=== PATIENT | male | born 1955 | race Caucasian/White ===

== ENCOUNTER 2017-02-20 10:10 | Inpatient (IN) | payer OTHER ==
[2017-02-20] MEDS ORDERED: PROMETHAZINE INJ 12.5 MG in SODIUM CHLORIDE 0.9% 50 ML IV STA (11:49)
[2017-02-20] MEDS ORDERED: IOPAMIDOL-300 100 ML VIAL IVP ONE (11:51)
[2017-02-20] MEDS ORDERED: PROMETHAZINE 25 MG/1 ML VIAL ONE (11:53)
[2017-02-20] MEDS ORDERED: SODIUM CHLORIDE 0.9% 1,000 ML IV ONE ×2 (12:40→14:20)
[2017-02-20] MEDS ORDERED: ONDANSETRON 4 MG/2 ML VIAL IVP STA (12:46)
[2017-02-20] MEDS ORDERED: HYOSCYAMINE SL 0.125 MG TABLET SL STA (12:47)
[2017-02-20] MEDS ORDERED: ONDANSETRON 4 MG/2 ML VIAL ONE (12:51)
[2017-02-20] MEDS ORDERED: PROCHLORPERAZINE 10 MG/2 ML VIAL IVP PRN (14:25)
[2017-02-20] MEDS: SODIUM CHLORIDE 0.9% 1,000 ML IV SCH ×2 (15:41→23:33)
[2017-02-20] MEDS: HYDROmorphone 1 MG/ML SYRINGE IVP PRN ×4 (15:41→23:43)
[2017-02-20] MEDS: PROMETHAZINE INJ 25 MG in SODIUM CHLORIDE 0.9% 50 ML IV PRN ×2 (15:41→21:09)
[2017-02-20] MEDS: SODIUM CHLORIDE FLUSH 0.9% 10 ML SYRINGE IVP SCH (15:50)
[2017-02-20] MEDS: INSULIN ASPART 300 UNIT/3 ML PEN SUBQ SCH ×2 (17:00→20:35)
[2017-02-20] MEDS: ONDANSETRON ODT 4 MG TABLET TL PRN (20:29)
[2017-02-21] MEDS: SODIUM CHLORIDE FLUSH 0.9% 10 ML SYRINGE IVP PRN ×4 (03:48→15:51)
[2017-02-21] MEDS: HYDROmorphone 1 MG/ML SYRINGE IVP PRN ×5 (03:48→21:34)
[2017-02-21] MEDS: SODIUM CHLORIDE FLUSH 0.9% 10 ML SYRINGE IVP SCH ×3 (05:28→17:30)
[2017-02-21] MEDS: SODIUM CHLORIDE 0.9% 1,000 ML IV SCH ×3 (05:39→19:39)
[2017-02-21] MEDS: INSULIN ASPART 300 UNIT/3 ML PEN SUBQ SCH ×4 (08:10→21:03)
[2017-02-21] MEDS: ONDANSETRON ODT 4 MG TABLET TL PRN (08:20)
[2017-02-21] MEDS: LISINOPRIL 20 MG TABLET PO SCH (08:20)
[2017-02-21] MEDS: FAMOTIDINE 20 MG TABLET PO SCH (08:20)
[2017-02-21] MEDS: METOPROLOL TARTRATE 25 MG TABLET PO SCH (08:21)
[2017-02-21] MEDS: POLYETHYLENE GLYCOL 3350 17 GM PACKET PO SCH (08:22)
[2017-02-21] MEDS: metroNIDAZOLE 250 MG TABLET PO SCH ×2 (12:45→17:31)
[2017-02-21] MEDS: PROMETHAZINE INJ 25 MG in SODIUM CHLORIDE 0.9% 50 ML IV PRN (14:04)
[2017-02-21] MEDS: SODIUM/POTASSIUM/MAG SULFATES 354 ML PREP KIT PO SCH (19:37)
[2017-02-21] MEDS: ACETAMINOPHEN 325 MG TABLET PO PRN (20:29)
[2017-02-22] MEDS: metroNIDAZOLE 250 MG TABLET PO SCH ×5 (00:05→23:40)
[2017-02-22] MEDS: HYDROmorphone 1 MG/ML SYRINGE IVP PRN ×8 (00:15→23:40)
[2017-02-22] MEDS: SODIUM CHLORIDE 0.9% 1,000 ML IV SCH ×4 (01:42→20:57)
[2017-02-22] MEDS: SODIUM CHLORIDE FLUSH 0.9% 10 ML SYRINGE IVP SCH ×4 (05:25→20:58)
[2017-02-22] MEDS: INSULIN REGULAR HUMAN 100 UNIT/1 ML 10 ML MDV SUBQ SCH ×2 (06:03→11:46)
[2017-02-22] MEDS: SODIUM/POTASSIUM/MAG SULFATES 354 ML PREP KIT PO SCH (07:50)
[2017-02-22] MEDS: ACETAMINOPHEN 325 MG TABLET PO PRN (07:57)
[2017-02-22] MEDS: METOPROLOL TARTRATE 25 MG TABLET PO SCH (07:58)
[2017-02-22] MEDS: LISINOPRIL 20 MG TABLET PO SCH (07:58)
[2017-02-22] MEDS: FAMOTIDINE 20 MG TABLET PO SCH (07:58)
[2017-02-22] MEDS: POLYETHYLENE GLYCOL 3350 17 GM PACKET PO SCH (10:39)
[2017-02-22] MEDS: TAMSULOSIN 0.4 MG CAPSULE PO SCH (11:33)
[2017-02-22] MEDS ORDERED: fentaNYL 250 MCG/5 ML VIAL IVP ONE (14:15)
[2017-02-22] MEDS ORDERED: SODIUM CHLORIDE 0.9% 1,000 ML IV ONE (14:15)
[2017-02-22] MEDS ORDERED: MIDAZOLAM 2 MG/2 ML VIAL IVP ONE (14:15)
[2017-02-22] MEDS: INSULIN ASPART 300 UNIT/3 ML PEN SUBQ SCH ×2 (17:22→20:49)
[2017-02-22] MEDS: SODIUM CHLORIDE FLUSH 0.9% 10 ML SYRINGE IVP PRN (23:41)
[2017-02-22] MEDS: ONDANSETRON ODT 4 MG TABLET TL PRN (23:47)
[2017-02-23] MEDS: SODIUM CHLORIDE 0.9% 1,000 ML IV SCH ×2 (04:07→12:39)
[2017-02-23] MEDS: HYDROmorphone 1 MG/ML SYRINGE IVP PRN ×2 (04:45→06:28)
[2017-02-23] MEDS: metroNIDAZOLE 250 MG TABLET PO SCH ×2 (06:22→13:03)
[2017-02-23] MEDS: ACETAMINOPHEN 325 MG TABLET PO PRN (07:27)
[2017-02-23] MEDS: METOPROLOL TARTRATE 25 MG TABLET PO SCH (08:17)
[2017-02-23] MEDS: TAMSULOSIN 0.4 MG CAPSULE PO SCH (08:17)
[2017-02-23] MEDS: FAMOTIDINE 20 MG TABLET PO SCH (08:17)
[2017-02-23] MEDS: LISINOPRIL 20 MG TABLET PO SCH (08:17)
[2017-02-23] MEDS: POLYETHYLENE GLYCOL 3350 17 GM PACKET PO SCH (08:19)
[2017-02-23] MEDS: INSULIN ASPART 300 UNIT/3 ML PEN SUBQ SCH ×2 (09:02→12:39)
[2017-02-23] MEDS: SODIUM CHLORIDE FLUSH 0.9% 10 ML SYRINGE IVP SCH (13:48)
== END 2017-02-23 15:48 | disposition home or self-care (01) | DRG 392 ==
DX: K52.9 Noninfective gastroenteritis and colitis, unspecified (principal); K55.9 Vascular disorder of intestine, unspecified; R82.99 Other abnormal findings in urine; E11.65 Type 2 diabetes mellitus with hyperglycemia; I25.10 Atherosclerotic heart disease of native coronary artery without angina pectoris; I10 Essential (primary) hypertension; E78.5 Hyperlipidemia, unspecified; E03.9 Hypothyroidism, unspecified; Z79.82 Long term (current) use of aspirin; Z79.899 Other long term (current) drug therapy; Z79.84 Long term (current) use of oral hypoglycemic drugs; R33.0 Drug induced retention of urine; G47.33 Obstructive sleep apnea (adult) (pediatric)
CPT/HCPCS: 45380; G0378

== ENCOUNTER 2017-04-30 07:34 | Outpatient (CLI) | payer OTHER ==
[2017-04-30] MEDS ORDERED: IOPAMIDOL-300 100 ML VIAL IVP ONE (08:05)
--- NOTE | 2017-04-30 11:13 | CT Report ---
CT ANGIOGRAM ABDOMEN AND PELVIS: 04/30/2017 CLINICAL INDICATION: History of ischemic colitis. TECHNIQUE: Axial CT angiographic images of the abdomen and pelvis were obtained with 100 mL Isovue-3 00 intravenously. Sagittal and coronal 3D reconstructions were performed. In accordance with CT protocol optimization, one or more of the following dose reduction techniques w ere utilized for this exam: automated exposure control, adjustment of mA and/or KV based on patient size, or use of iterative reconstructive technique. COMPARISON: Previous CT of the abdomen and pelvis of 02/20/2017. FINDINGS: Limited evaluation of the lung bases demonstrates emphysema. The previously noted 3-mm le ft lower lobe nodule is no longer appreciated. Abdomen: The abdominal aorta is normal in caliber throughout. No significant atherosclerosis or cole nosis is identified. The celiac is widely patent. The superior mesenteric artery is widely patent. Widely patent renal arteries are noted bilaterally. The inferior mesenteric artery is widely patent . There is no evidence of a focal hemodynamically significant stenosis in either the superior mesent [place] or inferior mesenteric arteries. The common, external, and internal iliac arteries are unremark able. There is mild atherosclerotic disease in the common femoral arteries. Allowing for phase of contrast enhancement, the liver, spleen, pancreas, kidneys, and adrenal glands appear unremarkable. No bowel dilatation, free gas, or free fluid is present. No abdominal adenopat hy is seen. IMPRESSION: NORMAL CT ANGIOGRAM OF THE ABDOMEN AND PELVIS. NO EVIDENCE OF A HEMODYNAMICALLY SIGNIFI CANT MESENTERIC STENOSIS. JOB #: [id number] EXT JOB #:[id number]
== END 2017-04-30 07:35 | disposition home or self-care (01) ==
LOC: DI 07:34
PROVIDERS: ATTEND Surgery
DX: K55.9 Vascular disorder of intestine, unspecified (principal)
CPT/HCPCS: 74174; Q9967

== ENCOUNTER 2019-05-13 07:20 | Inpatient (IN) | payer OTHER ==
[2019-05-13] MEDS ORDERED: ONDANSETRON 4 MG/2 ML VIAL IVP STA ×2 (07:51→11:54)
[2019-05-13] MEDS ORDERED: HYDROmorphone 1 MG/ML CARPUJECT IVP STA ×2 (07:51→11:54)
[2019-05-13] MEDS ORDERED: SODIUM CHLORIDE 0.9% 1,000 ML IV ONE ×2 (07:51→11:54)
--- NOTE | 2019-05-13 07:54 | ED Physician Documentation ---
PD HPI ABD PAIN - Stated complaint Stated Complaint: MALE /BLEEDING - Chief complaint Chief Complaint: Abd Pain - History obtained from History obtained from: Patient - History of Present Illness Timing - onset: Last night Timing - duration: Days (1) Timing - details: Gradual onset, Still present Quality: Sharp, Pain Location: LLQ Improved by: Laying still Worsened by: Position, Palpation Associated symptoms: Nausea, Hematochezia Similar symptoms before: Diagnosis (colitis NOS 2 years ago) Recently seen: Not recently seen - Additional information Additional information: Similar to what happened 2 years ago with colitis leading to a 5 day hospitalization and no symptoms in the intervening time. The patient has developed a sequence of hard stool followed by normal stool followed by soft stool followed by explosive watery diarrhea. Last night he had several episodes of this followed by bloody diarrhea early this morning. He has had prior episode similar to this. Biopsy diagnosed ischemic colitis. Review of Systems Constitutional: reports: Chills. denies: Fever Eyes: denies: Decreased vision Ears: denies: Ear pain Nose: denies: Congestion Throat: denies: Sore throat Cardiac: denies: Chest pain / pressure, Palpitations Respiratory: denies: Dyspnea, Cough GI: reports: Abdominal Pain, Nausea, Bloody / black stool : denies: Dysuria, Frequency PD PAST MEDICAL HISTORY - Past Medical History Cardiovascular: Hypertension, High cholesterol Endocrine/Autoimmune: Type 2 diabetes - Past Surgical History Past Surgical History: Yes General: Cholecystectomy - Present Medications Home Medications: Ambulatory Orders Medication Instructions Recorded Confirmed Aspirin 325 mg PO DAILY 02/20/17 02/20/17 Levothyroxine Sodium [Synthroid] 100 mcg PO DAILY 02/20/17 02/20/17 Lisinopril 40 mg PO DAILY 02/20/17 02/20/17 Metformin HCl 1,000 mg PO BID 02/20/17 02/20/17 Metoprolol Tartrate 25 mg PO DAILY 02/20/17 02/20/17 Tamsulosin [Flomax] 0.8 mg PO DAILY #14 capsule 02/23/17 metroNIDAZOLE [Flagyl] 500 mg PO Q6HR #20 tablet 02/23/17 - Allergies Allergies/Adverse Reactions: Allergies Allergy/AdvReac Type Severity Reaction Status Date / Time No Known Drug Allergies Allergy Verified 05/13/19 07:29 - Social History Does the pt smoke?: No Smoking Status: Never smoker Does the pt drink ETOH?: No Does the pt have substance abuse?: No PD ED PE NORMAL - Vitals Vital signs reviewed: Yes (tachy and hypertensive ) - General General: Alert and oriented X 3, No acute distress, Well developed/nourished - HEENT HEENT: Atraumatic, PERRL, EOMI - Cardiac Cardiac: No murmur, Other (tachy) - Respiratory Respiratory: No respiratory distress - Abdomen Abdomen: Soft, Other (LLQ pain to palpation) - Back Back: No CVA TTP, No spinal TTP - Derm Derm: Normal color, Warm and dry, No rash - Extremities Extremities: No deformity, No edema - Neuro Neuro: Alert and oriented X 3, 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, No motor deficit, No sensory deficit, Normal speech Eye Opening: Spontaneous Motor: Obeys Commands Verbal: Oriented GCS Score: 15 - Psych Psych: Normal mood, Normal affect Results - Vitals Vitals: Vital Signs - 24 hr 05/13/19 05/13/19 05/13/19 07:27 08:55 10:24 Temperature 36.7 C Heart Rate 101 H 96 79 Respiratory 17 20 18 Rate Blood Pressure 182/88 H 174/90 H 159/79 H O2 Saturation 98 100 99 Oxygen O2 Source Room air - Labs Labs: Laboratory Tests 05/13/19 05/13/19 05/13/19 07:40 07:40 07:40 WBC 12.3 H RBC 5.00 Hgb 15.3 Hct 42.9 MCV 85.8 MCH 30.6 MCHC 35.7 RDW 12.9 Plt Count 227 MPV 9.3 Neut # (Auto) 9.8 H Lymph # (Auto) 1.4 L [place] # (Auto) 0.9 Eos # (Auto) 0.0 Baso # (Auto) 0.0 Absolute Nucleated RBC 0.00 Nucleated RBC % 0.0 Sodium 135 Potassium 4.0 Chloride 98 L Carbon Dioxide 23 Anion Gap 14.0 H BUN 26 H Creatinine 1.0 Estimated GFR (MDRD) 76 L Glucose 264 H Calcium 10.4 H Total Bilirubin 1.0 AST 53 H ALT 83 H Alkaline Phosphatase 107 Troponin I < 0.04 Total Protein 8.3 H Albumin 5.0 Globulin 3.3 Albumin/Globulin Ratio 1.5 Lipase 20 L Urine Color Urine Clarity Urine pH Ur Specific [place] Urine Protein Urine Glucose (UA) Urine Ketones Urine Occult Blood Urine Nitrite Urine Bilirubin Urine Urobilinogen Ur Leukocyte Esterase Ur Microscopic Review Urine Culture Comments 05/13/19 07:40 WBC RBC Hgb Hct MCV MCH MCHC RDW Plt Count MPV Neut # (Auto) Lymph # (Auto) [place] # (Auto) Eos # (Auto) Baso # (Auto) Absolute Nucleated RBC Nucleated RBC % Sodium Potassium Chloride Carbon Dioxide Anion Gap BUN Creatinine Estimated GFR (MDRD) Glucose Calcium Total Bilirubin AST ALT Alkaline Phosphatase Troponin I Total Protein Albumin Globulin Albumin/Globulin Ratio Lipase Urine Color YELLOW Urine Clarity CLEAR Urine pH 6.0 Ur Specific [place] <=1.005 Urine Protein NEGATIVE Urine Glucose (UA) 250 H Urine Ketones NEGATIVE Urine Occult Blood NEGATIVE Urine Nitrite NEGATIVE Urine Bilirubin NEGATIVE Urine Urobilinogen 0.2 (NORMAL) Ur Leukocyte Esterase NEGATIVE Ur Microscopic Review NOT INDICATED Urine Culture Comments NOT INDICATED - Rads (name of study) ct abd/pel w Radiology: Prelim report reviewed (Impression: 1. Nearly diffuse colonic wall thickening compatible with colitis. Cannot exclude early pancolitis. Soft tissue stranding is present adjacent to descending and proximal sigmoid colon. No pneumatosis or coli or portal venous gas. Fatty liver. Prior cholecystectomy.), EMP read indepedently, See rad report PD MEDICAL DECISION MAKING - ED course Complexity details: reviewed old records, reviewed results, re-evaluated patient, considered differential, d/w patient ED course: 63-year-old male with abdominal pain and a history of ischemic colitis has developed symptoms again and he will need admission for supportive care for bowel rest pain management and fluids. Departure - Departure Disposition: [facility] DC/Xfer Clinical Impression: Acute ischemic colitis Condition: Stable
[2019-05-13 07:57] LABS: BASOPHILS % (AUTO) 0.3 %; EOSINOPHILS % (AUTO) 0.1 %; HGB - HEMOGLOBIN 15.3 g/dL (14.0-18.0); LYMPHOCYTES # (AUTO) 1.4 10^3/uL (1.5-3.5); LYMPHOCYTES % (AUTO) 11.7 %; MEAN CORPUSCULAR HEMOGLOBIN 30.6 pg (27.0-31.0); MEAN CORPUSCULAR HGB CONC 35.7 g/dL (32.0-36.0); MEAN CORPUSCULAR VOLUME 85.8 fL (80.0-94.0); MEAN PLATELET VOLUME 9.3 fL (7.4-11.4); MONOCYTES # (AUTO) 0.9 10^3/uL (0.0-1.0); MONOCYTES % (AUTO) 7.4 %; NEUTROPHILS # (AUTO) 9.8 10^3/uL (1.5-6.6); NEUTROPHILS % (AUTO) 79.9 %; PLT - PLATELET COUNT 227 10^3/uL (130-450); RED CELL DISTRIBUTION WIDTH 12.9 % (12.0-15.0); WHITE BLOOD COUNT 12.3 x10^3/uL (4.8-10.8)
[2019-05-13 08:09] LABS: ALBUMIN/GLOBULIN RATIO 1.5 (1.0-2.2); CALCIUM 10.4 mg/dL (8.5-10.3); TOTAL PROTEIN 8.3 g/dL (6.7-8.2)
[2019-05-13] MEDS ORDERED: IOVERSOL 320 100 ML VIAL IVP ONE ×3 (08:24→18:23)
--- NOTE | 2019-05-13 09:12 | CT Report ---
Reason: LLQ pain bleeding Procedure Date: 05/13/2019 Accession Number: [id number] / [id number] Procedure: CT - Abdomen/Pelvis W CPT Code: FULL RESULT: EXAM: CT ABDOMEN AND PELVIS EXAM DATE: 05/13/2019 08:45 AM. CLINICAL HISTORY: LLQ pain bleeding. COMPARISONS: ABDOMEN ANGIO 04/30/2017 7:55 AM. TECHNIQUE: Routine helical CT imaging was performed through the abdomen and pelvis. IV contrast: 80 cc Optiray 320. Enteric contrast: No. Reconstructions: Coronal and sagittal. In accordance with CT protocol optimization, one or more of the following dose reduction techniques were utilized for this exam: automated exposure control, adjustment of mA and/or KV based on patient size, or use of iterative reconstructive technique. FINDINGS: Lung Bases: Unremarkable. Liver: Diffuse decreased liver attenuation consistent with fatty infiltration. No focal mass demonstrated. Gallbladder/Bile Ducts: Gallbladder surgically absent. Spleen: Normal. Pancreas: Normal. Adrenal Glands: Normal. Kidneys: Normal. No masses or hydronephrosis. Peritoneal Cavity/Bowel: Nearly diffuse colonic wall thickening relatively sparing cecum and possibly rectum. Soft tissue stranding adjacent to descending colon and proximal sigmoid colon. Fecalized contents of terminal ileum compatible with stasis. No dilated small bowel to suggest obstruction. Appendix not seen. No portal venous gas. No pneumatosis coli. Pelvic Organs: Normal. The bladder and visualized pelvic organs are within normal limits. Vasculature: No aneurysms or other significant abnormality. Visualized mesenteric arteries and veins are patent. Bones: Lumbar spine degenerative changes. Lower thoracic spine DISH. Other: None. IMPRESSION: 1. Nearly diffuse colonic wall thickening compatible with colitis. Cannot exclude early pancolitis. Soft tissue stranding is present adjacent to descending and proximal sigmoid colon. No pneumatosis coli or portal venous gas. 2. Fatty liver. 3. Prior cholecystectomy. RADIA
[2019-05-13 10:33] LABS: BILIRUBIN,URINE NEGATIVE (NEGATIVE); GLUCOSE, URINE (UA) 250 mg/dL (NEGATIVE); KETONES,URINE (UA) NEGATIVE (NEGATIVE); LEUKOCYTE ESTERASE, URINE NEGATIVE (NEGATIVE); NITRITE,URINE NEGATIVE (NEGATIVE); OCCULT BLOOD,URINE NEGATIVE (NEGATIVE); PROTEIN,URINE NEGATIVE (NEGATIVE); UROBILINOGEN,URINE 0.2 (NORMAL) E.U./dL (NORMAL)
[2019-05-13 10:34] LABS: CLARITY,URINE CLEAR (CLEAR)
[2019-05-13] MEDS ORDERED: ONDANSETRON ODT 4 MG TABLET TL PRN (12:10)
[2019-05-13] MEDS ORDERED: oxyCODONE 5 MG TABLET PO PRN (12:10)
[2019-05-13] MEDS: SODIUM CHLORIDE 0.9% 1,000 ML IV SCH (14:22)
[2019-05-13] MEDS: PIPERACILLIN/TAZOBACTAM 4.5 GM in SODIUM CHLORIDE 0.9% MINIBAG 100 ML IV SCH ×2 (14:22→19:27)
--- NOTE | 2019-05-13 15:15 | HISTORY & PHYSICAL EXAMINATION ---
Chief Complaint - Chief Complaint Chief Complaint: Abdominal Pain, N/V/D and hematochezia Abdominal Pain HPI - Admitted From Admitted from: ED - History Obtained From Records Reviewed: Old records reviewed History obtained from: Patient Exam limitations: No limitations - History of Present Illness Severity at the worst: Severe Pain Quality: Cramping, Other ("Knawing") Context-Pain started w/: Eating, Movement Timing: Abrupt onset, Constant Duration: Days: (1) PMH/PSH - Past Medical History Cardiovascular: positive: Hypertension, High cholesterol Endocrine/Autoimmune: positive: Type 2 diabetes MRSA Hx?: No - Past Surgical History General: positive: Cholecystectomy Social & Family Hx - Social History Does the pt smoke?: No Smoking Status: Never smoker Does the pt drink ETOH?: No Does the pt have substance abuse?: No Meds/Allgy - Home Medications Home Medications: Ambulatory Orders Medication Instructions Recorded Confirmed Aspirin 325 mg PO DAILY 02/20/17 05/13/19 Levothyroxine Sodium [Synthroid] 100 mcg PO DAILY 02/20/17 05/13/19 Lisinopril 40 mg PO DAILY 02/20/17 05/13/19 Metformin HCl 1,000 mg PO BID 02/20/17 05/13/19 Atorvastatin Calcium 40 mg PO QPM 05/13/19 05/13/19 Dulaglutide [Trulicity] 0.75 mg SQ WE 05/13/19 05/13/19 Folic Acid 1 mg PO DAILY 05/13/19 05/13/19 Gabapentin [Neurontin] 300 mg PO TID 05/13/19 05/13/19 Insulin Aspart [NovoLOG] 25 unit SUBQ BID 05/13/19 Insulin Glargine [Lantus Solostar] 25 unit SUBQ QPM 05/13/19 05/13/19 Lisinopril [Prinivil] 20 mg PO QPM 05/13/19 05/13/19 hydroCHLOROthiazide 25 mg PO DAILY 05/13/19 05/13/19 [Hydrochlorothiazide] - Allergies Allergies/Adverse Reactions: Allergies Allergy/AdvReac Type Severity Reaction Status Date / Time No Known Drug Allergies Allergy Verified 05/13/19 07:29 Exam - Vital Signs Vital Signs: Vital Signs x48h Temp Pulse Pulse Resp BP BP Pulse Ox 05/13/19 13:46 36.7 C 102 H 16 133/79 H 96 06/29/19 12:47 36.0 C L 79 18 134/74 H 97 05/13/19 12:32 106 H 126/80 93 05/13/19 10:24 79 18 159/79 H 99 05/13/19 08:55 96 20 174/90 H 100 05/13/19 07:27 36.7 C 101 H 17 182/88 H 98 Results - Lab Results Fish Bones: 05/13/19 07:40 05/13/19 07:40 Other Lab Results: Lab Results x24hrs 05/13/19 05/13/19 05/13/19 Range/Units 07:40 07:40 07:40 WBC (4.8-10.8) x10^3/uL RBC (4.70-6.10) 10^6/uL Hgb (14.0-18.0) g/dL Hct (42.0-52.0) % MCV (80.0-94.0) fL MCH (27.0-31.0) pg MCHC (32.0-36.0) g/dL RDW (12.0-15.0) % Plt Count (130-450) 10^3/uL MPV (7.4-11.4) fL Neut # (Auto) (1.5-6.6) 10^3/uL Lymph # (Auto) (1.5-3.5) 10^3/uL [place] # (Auto) (0.0-1.0) 10^3/uL Eos # (Auto) (0.0-0.7) 10^3/uL Baso # (Auto) (0.0-0.1) 10^3/uL Absolute Nucleated RBC x10^3/uL Nucleated RBC % /100WBC Sodium 135 (135-145) mmol/L Potassium 4.0 (3.5-5.0) mmol/L Chloride 98 L (101-111) mmol/L Carbon Dioxide 23 (21-32) mmol/L Anion Gap 14.0 H (6-13) BUN 26 H (6-20) mg/dL Creatinine 1.0 (0.6-1.2) mg/dL Estimated GFR (MDRD) 76 L (>89) Glucose 264 H (70-100) mg/dL Calcium 10.4 H (8.5-10.3) mg/dL Total Bilirubin 1.0 (0.2-1.0) mg/dL AST 53 H (10-42) IU/L ALT 83 H (10-60) IU/L Alkaline Phosphatase 107 (42-121) IU/L Troponin I < 0.04 (<0.49) ng/mL Total Protein 8.3 H (6.7-8.2) g/dL Albumin 5.0 (3.2-5.5) g/dL Globulin 3.3 (2.1-4.2) g/dL Albumin/Globulin Ratio 1.5 (1.0-2.2) Lipase 20 L (22-51) U/L Urine Color YELLOW Urine Clarity CLEAR (CLEAR) Urine pH 6.0 (5.0-7.5) PH Ur Specific [place] <=1.005 (1.002-1.030) Urine Protein NEGATIVE (NEGATIVE) mg/dL Urine Glucose (UA) 250 H (NEGATIVE) mg/dL Urine Ketones NEGATIVE (NEGATIVE) mg/dL Urine Occult Blood NEGATIVE (NEGATIVE) Urine Nitrite NEGATIVE (NEGATIVE) Urine Bilirubin NEGATIVE (NEGATIVE) Urine Urobilinogen 0.2 (NORMAL) (NORMAL) E.U./dL Ur Leukocyte Esterase NEGATIVE (NEGATIVE) Ur Microscopic Review NOT INDICATED Urine Culture Comments NOT INDICATED 05/13/19 Range/Units 07:40 WBC 12.3 H (4.8-10.8) x10^3/uL RBC 5.00 (4.70-6.10) 10^6/uL Hgb 15.3 (14.0-18.0) g/dL Hct 42.9 (42.0-52.0) % MCV 85.8 (80.0-94.0) fL MCH 30.6 (27.0-31.0) pg MCHC 35.7 (32.0-36.0) g/dL RDW 12.9 (12.0-15.0) % Plt Count 227 (130-450) 10^3/uL MPV 9.3 (7.4-11.4) fL Neut # (Auto) 9.8 H (1.5-6.6) 10^3/uL Lymph # (Auto) 1.4 L (1.5-3.5) 10^3/uL [place] # (Auto) 0.9 (0.0-1.0) 10^3/uL Eos # (Auto) 0.0 (0.0-0.7) 10^3/uL Baso # (Auto) 0.0 (0.0-0.1) 10^3/uL Absolute Nucleated RBC 0.00 x10^3/uL Nucleated RBC % 0.0 /100WBC Sodium (135-145) mmol/L Potassium (3.5-5.0) mmol/L Chloride (101-111) mmol/L Carbon Dioxide (21-32) mmol/L Anion Gap (6-13) BUN (6-20) mg/dL Creatinine (0.6-1.2) mg/dL Estimated GFR (MDRD) (>89) Glucose (70-100) mg/dL Calcium (8.5-10.3) mg/dL Total Bilirubin (0.2-1.0) mg/dL AST (10-42) IU/L ALT (10-60) IU/L Alkaline Phosphatase (42-121) IU/L Troponin I (<0.49) ng/mL Total Protein (6.7-8.2) g/dL Albumin (3.2-5.5) g/dL Globulin (2.1-4.2) g/dL Albumin/Globulin Ratio (1.0-2.2) Lipase (22-51) U/L Urine Color Urine Clarity (CLEAR) Urine pH (5.0-7.5) PH Ur Specific [place] (1.002-1.030) Urine Protein (NEGATIVE) mg/dL Urine Glucose (UA) (NEGATIVE) mg/dL Urine Ketones (NEGATIVE) mg/dL Urine Occult Blood (NEGATIVE) Urine Nitrite (NEGATIVE) Urine Bilirubin (NEGATIVE) Urine Urobilinogen (NORMAL) E.U./dL Ur Leukocyte Esterase (NEGATIVE) Ur Microscopic Review Urine Culture Comments
--- NOTE | 2019-05-13 15:28 | HISTORY & PHYSICAL EXAMINATION ---
Chief Complaint - Chief Complaint Chief Complaint: Abdominal Pain, N/V/D and hematochezia <Isacc Dumont - Last Filed: 05/13/19 15:30> History of Present Illness - Admitted From Admitted From:: ED - History Obtained From Records Reviewed: Yes History obtained from: Patient and previous medical record Exam Limitations: None <Isacc Dumont - Last Filed: 05/13/19 15:30> <Nikia Molina - Last Filed: 05/13/19 17:22> - History of Present Illness HPI Comment/Other: Mr. Mancini is a 63yo M with PMH of T2DM, HLD, HTN, athlerosclerosis, and hypothyroidism who presented to the ED early this am with severe abdominal pain, nausea, vomiting and hematochezia that started last night around 2200. It started with about 5 hours and vomiting and diarrhea that turned into having f rank bloody stools (about 5-6 episodes). He reports an 8 month history of ongoing abdominal pain, but that last night it was 7/10 and significantly worse than baseline. Pain is a constant "knawing" and cramping in the bilateral lower abdomen and worse on the left side. Worsened with any movement and not found to be relieved by anything, though he hasn't tried anything until receiving medication in the ED. CT Abd/Pelvis shows diffuse liver attenuation consistent with fatty infiltration and diffuse colonic wall thickening compatible with colitis, cannot exclude pancolitits. CBC shows a mildly elevated WBC at 12.3. Elevated LFTs with AST 53 and ALT 83. Elevated glucose at 264, with glucose positive in urine as well. He had a previous episode in which the patient presented in a similar manner and he reports his symptoms being nearly identical. He was [facility] 02/23[facility] (See discharge summary by Dr.Wilson CARNEY) with diagnosis of colitis of unknown etiology and acute gastroenteritis. Colonoscopy with biopsies revealed ischemic colitis, negative for dysplagia or carcinoma. (Isacc Dumont) Patient seen with student and history obtained. No additions. He Had a previous admission for ischemic colitis in 2017. He does have documented risk factors for arterial sclerosis and has not been compliant with his medications or li festyle. He now presents with an 8-month history of intermittent abdominal pain made worse by eating. Cycles about once a week. This time he had abrupt onset nausea, vomiting, diarrhea. Lasted 5 hours and then transition to bloody diarrhea. He has been seen in the emergency room and he is afebrile, tachycardic to 101, hypertensive at 182/88 with respirations 17 and 98% on room air. He has left lower quadrant pain to palpation but normal bowel sounds. (Nikia Molina) History - Past Medical History Cardiovascular: reports: Hypertension, High cholesterol Respiratory: reports: Shortness of breath (intermittent episodes of SOB every 1- 2 weeks for past few months) Neuro: reports: None Endocrine/Autoimmune: reports: Type 2 diabetes, HyPOthyroidism GI: reports: Chronic diarrhea, Other (Ischemic colitis in 2017) : reports: None HEENT: reports: None Psych: reports: None Musculoskeletal: reports: None Derm: reports: Other (pink scaley spots to R forearm and R cheek) MRSA Hx?: No Other Past Medical History: Ankle Surgery in 2004. Gallbladder removal in 2007 - Past Surgical History General: reports: Cholecystectomy <Isacc Dumont - Last Filed: 05/13/19 15:30> - Past Surgical History Other past surgical history: Past medical history obtained and no additions to past medical or surgical history. - Family & Social History Family History Comment/Other: Mom at age 69 dementia. Dad at age 78 of congestive heart failure. No siblings. 5 children. Oldest has type 1 diabetes mellitus and rheumatoid arthritis Living arrangement: At home Living Situation: With spouse/s.o. 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 Currently works for the [employer] in [place] during the week and lives in [place] on the weekends. Never smoked. Drinks maybe 2 beers a month. to his for 38 years and they have 5 children together. No history of recreational substance abuse. - Substance History Use: Uses substance without health or social issues: NONE Abuse: Recurrent use of substance despite neg consequences: NONE Dependence: Experiences withdrawal or developed tolerances: NONE - POLST Patient has POLST: No POLST Status: Full Code <Nikia Molina - Last Filed: 05/13/19 17:22> Meds/Allgy <Isacc Dumont - Last Filed: 05/13/19 15:30> <Nikia Molina - Last Filed: 05/13/19 17:22> - Home Medications Home Medications: Ambulatory Orders Medication Instructions Recorded Confirmed Aspirin 325 mg PO DAILY 02/20/17 05/13/19 Levothyroxine Sodium [Synthroid] 100 mcg PO DAILY 02/20/17 05/13/19 Lisinopril 40 mg PO DAILY 02/20/17 05/13/19 Metformin HCl 1,000 mg PO BID 02/20/17 05/13/19 Atorvastatin Calcium 40 mg PO QPM 05/13/19 05/13/19 Dulaglutide [Trulicity] 0.75 mg SQ WE 05/13/19 05/13/19 Folic Acid 1 mg PO DAILY 05/13/19 05/13/19 Gabapentin [Neurontin] 300 mg PO TID 05/13/19 05/13/19 Insulin Aspart [NovoLOG] 25 unit SUBQ BID 05/13/19 Insulin Glargine [Lantus Solostar] 25 unit SUBQ QPM 05/13/19 05/13/19 Lisinopril [Prinivil] 20 mg PO QPM 05/13/19 05/13/19 hydroCHLOROthiazide 25 mg PO DAILY 05/13/19 05/13/19 [Hydrochlorothiazide] - Allergies Allergies/Adverse Reactions: Allergies Allergy/AdvReac Type Severity Reaction Status Date / Time No Known Drug Allergies Allergy Verified 05/13/19 07:29 Review of Systems - Constitutional Constitutional: reports: Fatigue, Malaise - Cardiovascular Cariovascular: reports: Edema (bilateral pedal edema s/t ACEi) - Respiratory Respiratory: reports: SOB at rest - Gastrointestinal Gastrointestinal: reports: Abdominal pain, Abdominal distention, Diarrhea, Change in bowel habits, Bloody stools, Nausea, Vomiting - Musculoskeletal Musculoskeletal: reports: Other (leg cramping) - Integumentary Integumentary: reports: Lesions (pink, scaly lesion to R FA and R cheek), Other - Neurological Neurological: reports: Numbness (diabetic neuropathy to bilat feet from toes to ankles) - Endocrine Endocrine: reports: Polyuria, Polydypsia - All Other Systems All Other Systems: reports: Reviewed and negative <Isacc Dumont - Last Filed: 05/13/19 15:30> - Eyes Eyes: denies: Pain, Irritation, Amaurosis, Blurred vision - Ears, Nose & Throat Ears, Nose & Throat: denies: Ear pain, Hearing loss, Vertigo, Sore throat, Hoarseness - Cardiovascular Cariovascular: reports: Other (knows what it's like to pass out from vasovagal s yncope and he's not doing that). denies: Lightheadedness, Syncope - Respiratory Respiratory: denies: Cough, Hemoptysis, Orthopnea - Genitourinary Genitourinary: reports: Frequency, Urgency, Nocturia. denies: Dysuria, Hem aturia - Psychiatric Psychiatric: denies: Depression, Anxiety, Suicidal - Hematologic/Lymphatic Hematologic/Lymphatic: denies: Anemia, Bruising <Nikia Molina - Last Filed: 05/13/19 17:22> <Isacc Dumont - Last Filed: 05/13/19 15:30> Prior Level of Functionality: Living at home independently, still working. (Isacc Dumont) Exam - Vital Signs Reviewed Vital Signs: Yes - Physical Exam General Appearance: positive: No acute distress Eyes Bilateral: positive: Normal inspection, PERRL, EOMI, Conjunctivae nml ENT: positive: Dry mucous membranes Neck: positive: Nml inspection, Thyroid nml, No JVD, Trachea midline, Other (No carotid bruits) Respiratory: positive: No respiratory distress, Breath sounds nml Cardiovascular: positive: Regular rate & rhythm, No murmur, No gallop Peripheral Pulses: positive: 2+ Abdomen: positive: Nml bowel sounds, Tenderness, Other (Distension. Liver and spleen not palpable) Skin: positive: Color nml, Warm, Dry Extremities: positive: Full ROM, Nml appearance Neurologic/Psychiatric: positive: Oriented x3, CN's nml (2-12), Mood/affect nml <Isacc Dumont - Last Filed: 05/13/19 15:30> <Nikia Molina - Last Filed: 05/13/19 17:22> - Vital Signs Vital Signs: Vital Signs x48h Temp Pulse Pulse Pulse Resp BP BP 05/13/19 16:44 36.4 C L 90 20 150/88 H 05/13/19 13:46 36.7 C 102 H 16 133/79 H 05/13/19 12:47 36.0 C L 79 18 134/74 H 05/13/19 12:32 106 H 126/80 05/13/19 10:24 79 18 159/79 H Pulse Ox 05/13/19 16:44 94 05/13/19 13:46 96 05/13/19 12:47 97 05/13/19 12:32 93 05/13/19 10:24 99 - Physical Exam Comments/Other: Patient examined by me. He is an alert oriented stocky middle-aged white male who is exhausted from his long episodes of nausea vomiting and diarrhea. Head and neck, pulmonary, cardiac exam is negative. Abdomen is moderately o verweight, soft, normal bowel sounds. Tenderness over the left lower quadrant but no rebound, no guarding, no peritoneal findings. (Nikia Molina) Conclusion/Plan - Problem List (1) Acute ischemic colitis Conclusion/Plan: CT reveals diffuse colonic ischemia, elevated WBC 12.3 -IVF -start piperacillin-tazobactam for empiric coverage -ordered CTa to assess SMA anatomy, previously assessed 2 mo post last admission for colitis in 2017 without any evidence of stenosis of the SHIVANI or SMA and mild atherosclerosis disease in common femoral arteries -Revised Cardiac Risk Index Class III risk, 2 points, 10.1% Risk of cardiac mortality if taken to surgery and would require transfer out due to risk -will watch very closely due to pancolitis from presumed ischemic bowel (2) Type 2 diabetes mellitus, uncontrolled Conclusion/Plan: Comes in with BG of 264, reports taking metformin 1000mg BID, Aspart 25u BID but takes irregularly, and Lantus 25u q HS -Continue with Lantus 25u at HS -Initiate Aspart SSI per protocol -Hold metformin -Check HgbA1C (3) Essential hypertension Conclusion/Plan: Currently stable on home regimen -Continue lisinopril and HCTZ at home doses (4) Hypothyroid Conclusion/Plan: -Check TSH and free T4 -Continue levothyroxine 100mcg daily - Lab Results Lab results reviewed: Yes Fish Bones: 05/13/19 07:40 05/13/19 07:40 - Diagnostic Imaging Results Diagnostic Imaging Results: positive: Prelim report reviewed <Isacc Dumont - Last Filed: 05/13/19 15:30> - Lab Results Fish Bones: 05/13/19 07:40 05/13/19 07:40 - Diagnostic Imaging Results Diagnostic Imaging Results: positive: Final report reviewed - EKG Results EKG Interpreted Independently: No <Nikia Molina - Last Filed: 05/13/19 17:22> - Diagnostic Imaging Results Diagnostic Imaging Results Comments: CT ABDOMEN AND PELVIS EXAM DATE: 05/13/2019 08:45 AM. CLINICAL HISTORY: LLQ pain bleeding. COMPARISONS: ABDOMEN ANGIO 04/30/2017 7:55 AM. TECHNIQUE: Routine helical CT imaging was performed through the abdomen and pelvis. IV contrast: 80 cc Optiray 320. Enteric contrast: No. Reconstructions: Coronal and sagittal. In accordance with CT protocol optimization, one or more of the following dose reduction techniques were utilized for this exam: automated exposure control, adjustment of mA and/or KV based on patient size, or use of iterative reconstructive technique. FINDINGS: Lung Bases: Unremarkable. Liver: Diffuse decreased liver attenuation consistent with fatty infiltration. No focal mass demonstrated. Gallbladder/Bile Ducts: Gallbladder surgically absent. Spleen: Normal. Pancreas: Normal. Adrenal Glands: Normal. Kidneys: Normal. No masses or hydronephrosis. Peritoneal Cavity/Bowel: Nearly diffuse colonic wall thickening relatively sparing cecum and possibly rectum. Soft tissue stranding adjacent to descending colon and proximal sigmoid colon. Fecalized contents of terminal ileum compatible with stasis. No dilated small bowel to suggest obstruction. Appendix not seen. No portal venous gas. No pneumatosis coli. Pelvic Organs: Normal. The bladder and visualized pelvic organs are within normal limits. Vasculature: No aneurysms or other significant abnormality. Visualized mesenteric arteries and veins are patent. Bones: Lumbar spine degenerative changes. Lower thoracic spine DISH. Other: None. IMPRESSION: 1. Nearly diffuse colonic wall thickening compatible with colitis. Cannot exclude early pancolitis. Soft tissue stranding is present adjacent to descending and proximal sigmoid colon. No pneumatosis coli or portal venous gas. 2. Fatty liver. 3. Prior cholecystectomy. (Nikia Molina) - Other Other Results/Comments: Assessment and plan reviewed with student. Documentation of her findings and thought process with our treatment plan accurately reflected. (Nikia Molina) Core Measures - Anticipated LOS I expect patient to be DC'd or transferred within 96 hours.: Yes - DVT/VTE - Prophylaxis VTE/DVT Device ordered at admit?: Yes <Isacc Dumont - Last Filed: 05/13/19 15:30>
[2019-05-13 15:36] LABS: HB2 TOTAL 16.1 g/dL; HEMOGLOBIN A1C 1.32 g/dL; HEMOGLOBIN A1C % 9.7 % (4.6-6.2)
[2019-05-13] MEDS: INSULIN ASPART 300 UNIT/3 ML PEN SUBQ SCH ×2 (16:57→20:46)
[2019-05-13] MEDS: ONDANSETRON 4 MG/2 ML VIAL IVP PRN ×2 (16:59→20:46)
[2019-05-13] MEDS: SODIUM CHLORIDE FLUSH 0.9% 10 ML SYRINGE IVP SCH (16:59)
[2019-05-13] MEDS: HYDROmorphone 1 MG/ML CARPUJECT IVP PRN ×2 (17:38→21:43)
--- NOTE | 2019-05-13 19:22 | CT Report ---
Reason: total colon ischemia colitis Procedure Date: 05/13/2019 Accession Number: [id number] / [id number] Procedure: CT - ANGIO ABDOMEN/PELVIS W CPT Code: FULL RESULT: EXAM: CT ANGIOGRAM ABDOMEN AND PELVIS WITH CONTRAST EXAM DATE: 05/13/2019 06:22 PM. CLINICAL HISTORY: Total colon ischemia colitis. COMPARISONS: ABDOMEN/PELVIS W/ 05/13/2019 8:34 AM. TECHNIQUE: Routine helical CT angiogram imaging was performed through the abdomen and pelvis in the arterial phase. IV contrast: 99 cc Optiray 320. Enteric contrast: No. Reconstructions: Coronal, sagittal, and 3D MIP reconstructions. In accordance with CT protocol optimization, one or more of the following dose reduction techniques were utilized for this exam: automated exposure control, adjustment of mA and/or KV based on patient size, or use of iterative reconstructive technique. FINDINGS: Vasculature: No aneurysm, dissection, There is mild to moderate atherosclerotic changes of the abdominal aorta. Mild narrowing of the celiac artery. SMA patent. Mild narrowing origin of the SHIVANI. No thrombosis of the mesenteric arteries. Lung Bases: Normal. Abdominal Solid Organs: Normal. The liver, spleen, pancreas, adrenal glands, gallbladder and kidneys are normal in size and demonstrate no masses or abnormal enhancement. Peritoneal Cavity: Diffuse colonic wall thickening sparing portions of the ascending colon cecum and rectum. Pericolonic stranding. Small amount of free fluid left paracolic gutter, left pelvis. Diverticulosis. Small retroperitoneal, mesenteric lymph nodes less than 1 cm.. No pneumatosis. No free air. No free fluid, free air, Pelvic Organs: Mild prostate enlargement. The bladder and visualized pelvic organs are otherwise within normal limits. Bones: DJD spine Other: No portal venous air. IMPRESSION: 1. No evidence for mesenteric ischemia. 2. Diffuse colonic wall thickening. 3. Diverticulosis RADIA
[2019-05-13] MEDS: SODIUM CHLORIDE FLUSH 0.9% 10 ML SYRINGE IVP PRN (20:47)
[2019-05-13] MEDS ORDERED: INSULIN GLARGINE 300 UNIT/3 ML PEN SUBQ SCH (21:00)
[2019-05-14] MEDS: HYDROmorphone 1 MG/ML CARPUJECT IVP PRN ×5 (00:26→22:05)
[2019-05-14] MEDS: ONDANSETRON 4 MG/2 ML VIAL IVP PRN ×2 (00:44→07:01)
[2019-05-14] MEDS: PIPERACILLIN/TAZOBACTAM 4.5 GM in SODIUM CHLORIDE 0.9% MINIBAG 100 ML IV SCH ×4 (00:50→19:36)
[2019-05-14] MEDS: SODIUM CHLORIDE FLUSH 0.9% 10 ML SYRINGE IVP SCH ×3 (00:59→16:43)
[2019-05-14] MEDS: SODIUM CHLORIDE 0.9% 1,000 ML IV SCH ×2 (01:59→13:59)
[2019-05-14] MEDS ORDERED: CYCLOBENZAPRINE 10 MG TABLET PO PRN (06:04)
[2019-05-14 06:30] LABS: BASOPHILS % (AUTO) 0.3 %; EOSINOPHILS # (AUTO) 0.1 10^3/uL (0.0-0.7); EOSINOPHILS % (AUTO) 0.5 %; HGB - HEMOGLOBIN 12.8 g/dL (14.0-18.0); LYMPHOCYTES # (AUTO) 1.7 10^3/uL (1.5-3.5); LYMPHOCYTES % (AUTO) 16.5 %; MEAN CORPUSCULAR HEMOGLOBIN 30.3 pg (27.0-31.0); MEAN CORPUSCULAR HGB CONC 35.2 g/dL (32.0-36.0); MEAN CORPUSCULAR VOLUME 86.3 fL (80.0-94.0); MEAN PLATELET VOLUME 9.1 fL (7.4-11.4); MONOCYTES # (AUTO) 0.9 10^3/uL (0.0-1.0); MONOCYTES % (AUTO) 8.2 %; NEUTROPHILS # (AUTO) 7.7 10^3/uL (1.5-6.6); NEUTROPHILS % (AUTO) 74.1 %; PLT - PLATELET COUNT 154 10^3/uL (130-450); RED BLOOD COUNT 4.22 10^6/uL (4.70-6.10); RED CELL DISTRIBUTION WIDTH 12.8 % (12.0-15.0); WHITE BLOOD COUNT 10.4 x10^3/uL (4.8-10.8)
[2019-05-14 06:39] LABS: CALCIUM 8.5 mg/dL (8.5-10.3); CREATININE 0.7 mg/dL (0.6-1.2)
[2019-05-14] MEDS: LEVOTHYROXINE 100 MCG TABLET PO SCH (06:54)
[2019-05-14] MEDS: INSULIN ASPART 300 UNIT/3 ML PEN SUBQ SCH ×4 (08:41→21:16)
--- NOTE | 2019-05-14 09:00 | PROVIDER PROGRESS NOTE ---
<Isacc Dumont - Last Filed: 05/14/19 15:01> Subjective - Prog Note Date Prog Note Date: 05/14/19 Prog Note Time: 13:41 - Subjective Pt reports feeling: No change (Pain is well controlled with pain medication. 1 small mucousy/bloody stool this afternoon (reportedly a dark devlin color stool). Patient is tolerating a clear liquid diet. Complains of nausea associated with pain medication, will add phenergan to MAR as patient has tolerated well in the past. Reports poor night's sleep due to not having CPAP from home. His plans to bring it in today and patient plans to nap this afternoon. Difficulty initiating urine stream, started flomax which patient has used on past admission with success for same issue.) Current Medications - Current Medications Current Medications: Active Medications Atorvastatin Calcium (Lipitor) 40 mg PO QPM JUDY Cyclobenzaprine HCl (Flexeril) 10 mg PO TID PRN PRN Reason: Spasms Last Admin: 05/14/19 06:54 Dose: 10 mg Folic Acid () 1 mg PO DAILY JUDY Gabapentin (Neurontin) 300 mg PO TID JUDY Hydromorphone HCl (Dilaudid Inj Carp) 1 mg IVP Q2HR PRN PRN Reason: Pain 8 to 10 Last Admin: 05/14/19 05:21 Dose: 1 mg Piperacillin Sod/Tazobactam (Sod 4.5 gm/ Sodium Chloride) 100 mls @ 200 mls/hr IV Q6H JUDY Last Admin: 05/14/19 06:55 Dose: 200 mls/hr Sodium Chloride (Normal Saline 0.9%) 1,000 mls @ 100 mls/hr IV .Q10H [facility] Last Admin: 05/14/19 01:59 Dose: 100 mls/hr Insulin Aspart (Novolog) 1 - 9 unit SUBQ 0800,1200,1700,2100 JUDY; Protocol Last Admin: 05/14/19 08:41 Dose: 1 unit Insulin Glargine (Lantus Solostar) 20 unit SUBQ QPM JUDY Last Admin: 05/13/19 20:46 Dose: 20 unit Levothyroxine Sodium (Synthroid) 100 mcg PO QDAC [facility] Last Admin: 05/14/19 06:54 Dose: 100 mcg Ondansetron HCl (Zofran Odt) 4 mg TL Q6HR PRN PRN Reason: Nausea / Vomiting Last Admin: 05/13/19 14:21 Dose: 4 mg Ondansetron HCl (Zofran Inj) 4 mg IVP Q4HR PRN PRN Reason: Nausea / Vomiting Last Admin: 05/14/19 07:01 Dose: 4 mg Oxycodone HCl (Roxicodone) 5 mg PO Q4HR PRN PRN Reason: Pain 5 to 7 Polyethylene Glycol (Miralax) 17 gm PO DAILY [facility] Sodium Chloride (Normal Saline Flush 0.9%) 10 ml IVP PRN PRN PRN Reason: NEEDED PER PROVIDER ORDERS Last Admin: 05/13/19 20:47 Dose: 10 ml Sodium Chloride (Normal Saline Flush 0.9%) 10 ml IVP 0100,0900,1700 JUDY Last Admin: 05/14/19 08:58 Dose: Not Given Aspirin 325 mg PO DAILY 02/20/17 Levothyroxine Sodium [Synthroid] 100 mcg PO DAILY 02/20/17 Lisinopril 40 mg PO DAILY 02/20/17 Metformin HCl 1,000 mg PO BID 02/20/17 Atorvastatin Calcium 40 mg PO QPM 05/13/19 Dulaglutide [Trulicity] 0.75 mg SQ WE 05/13/19 Folic Acid 1 mg PO DAILY 05/13/19 Gabapentin [Neurontin] 300 mg PO TID 05/13/19 Insulin Aspart [NovoLOG] 25 unit SUBQ BID 05/13/19 Insulin Glargine [Lantus Solostar] 25 unit SUBQ QPM 05/13/19 Lisinopril [Prinivil] 20 mg PO QPM 05/13/19 hydroCHLOROthiazide [Hydrochlorothiazide] 25 mg PO DAILY 05/13/19 Objective - Vital Signs/Intake & Output Reviewed Vital Signs: Yes Vital Signs: Vital Signs x48h Temp Pulse Resp Pulse Ox 05/14/19 08:11 36.7 C 72 16 98 Intake & Output: Intake & Output 05/11/19 05/12/19 05/13/19 05/14/19 23:59 23:59 23:59 23:59 Intake Total 2467.667 593.333 Output Total 1300 600 Balance 1167.667 -6.667 - Objective General Appearance: positive: No acute distress, Alert Eyes Bilateral: positive: Normal inspection, PERRL, EOMI ENT: positive: No signs of dehydration Neck: positive: Nml inspection, Thyroid nml, No JVD, Trachea midline. negative: Carotid bruit Respiratory: positive: Chest non-tender, No respiratory distress, Breath sounds nml Cardiovascular: positive: Regular rate & rhythm, No murmur, No gallop. negative: JVD present, Systolic murmur, Diastolic murmur, Gallop/S3, Gallop/S4, Friction rub Abdomen: positive: Nml bowel sounds, Other (Distention) Rectal: positive: Bloody stool Skin: positive: Color nml, No rash, Warm, Dry. negative: Diaphoresis, Pallor, Skin rash Extremities: positive: Non-tender, Full ROM, Nml appearance, Other (Hx of R shoulder labrum tear, occassionaly morning stiffness) Neurologic/Psychiatric: positive: Oriented x3, Mood/affect nml - Lab Results Fish Bones: 05/14/19 06:05 05/14/19 06:05 Other Labs: Lab Results x24hrs 05/14/19 05/14/19 05/14/19 Range/Units 07:55 06:05 06:05 WBC 10.4 (4.8-10.8) x10^3/uL RBC 4.22 L (4.70-6.10) 10^6/uL Hgb 12.8 L (14.0-18.0) g/dL Hct 36.4 L (42.0-52.0) % MCV 86.3 (80.0-94.0) fL MCH 30.3 (27.0-31.0) pg MCHC 35.2 (32.0-36.0) g/dL RDW 12.8 (12.0-15.0) % Plt Count 154 (130-450) 10^3/uL MPV 9.1 (7.4-11.4) fL Neut # (Auto) 7.7 H (1.5-6.6) 10^3/uL Lymph # (Auto) 1.7 (1.5-3.5) 10^3/uL [place] # (Auto) 0.9 (0.0-1.0) 10^3/uL Eos # (Auto) 0.1 (0.0-0.7) 10^3/uL Baso # (Auto) 0.0 (0.0-0.1) 10^3/uL Absolute Nucleated RBC 0.00 x10^3/uL Nucleated RBC % 0.0 /100WBC Sodium 136 (135-145) mmol/L Potassium 3.6 (3.5-5.0) mmol/L Chloride 101 (101-111) mmol/L Carbon Dioxide 23 (21-32) mmol/L Anion Gap 12.0 (6-13) BUN 15 (6-20) mg/dL Creatinine 0.7 (0.6-1.2) mg/dL Estimated GFR (MDRD) 115 (>89) Glucose 187 H (70-100) mg/dL POC Whole Bld Glucose 166 H (70 - 100) mg/dL Glycated Hemoglobin (4.6-6.2) % Estim Average Glucose (70-100) Calcium 8.5 (8.5-10.3) mg/dL Urine Color Urine Clarity (CLEAR) Urine pH (5.0-7.5) PH Ur Specific [place] (1.002-1.030) Urine Protein (NEGATIVE) mg/dL Urine Glucose (UA) (NEGATIVE) mg/dL Urine Ketones (NEGATIVE) mg/dL Urine Occult Blood (NEGATIVE) Urine Nitrite (NEGATIVE) Urine Bilirubin (NEGATIVE) Urine Urobilinogen (NORMAL) E.U./dL Ur Leukocyte Esterase (NEGATIVE) Ur Microscopic Review Urine Culture Comments 05/13/19 05/13/19 05/13/19 Range/Units 20:40 16:41 07:40 WBC (4.8-10.8) x10^3/uL RBC (4.70-6.10) 10^6/uL Hgb (14.0-18.0) g/dL Hct (42.0-52.0) % MCV (80.0-94.0) fL MCH (27.0-31.0) pg MCHC (32.0-36.0) g/dL RDW (12.0-15.0) % Plt Count (130-450) 10^3/uL MPV (7.4-11.4) fL Neut # (Auto) (1.5-6.6) 10^3/uL Lymph # (Auto) (1.5-3.5) 10^3/uL [place] # (Auto) (0.0-1.0) 10^3/uL Eos # (Auto) (0.0-0.7) 10^3/uL Baso # (Auto) (0.0-0.1) 10^3/uL Absolute Nucleated RBC x10^3/uL Nucleated RBC % /100WBC Sodium (135-145) mmol/L Potassium (3.5-5.0) mmol/L Chloride (101-111) mmol/L Carbon Dioxide (21-32) mmol/L Anion Gap (6-13) BUN (6-20) mg/dL Creatinine (0.6-1.2) mg/dL Estimated GFR (MDRD) (>89) Glucose (70-100) mg/dL POC Whole Bld Glucose 209 H 207 H (70 - 100) mg/dL Glycated Hemoglobin 9.7 H (4.6-6.2) % Estim Average Glucose 232 H (70-100) Calcium (8.5-10.3) mg/dL Urine Color Urine Clarity (CLEAR) Urine pH (5.0-7.5) PH Ur Specific [place] (1.002-1.030) Urine Protein (NEGATIVE) mg/dL Urine Glucose (UA) (NEGATIVE) mg/dL Urine Ketones (NEGATIVE) mg/dL Urine Occult Blood (NEGATIVE) Urine Nitrite (NEGATIVE) Urine Bilirubin (NEGATIVE) Urine Urobilinogen (NORMAL) E.U./dL Ur Leukocyte Esterase (NEGATIVE) Ur Microscopic Review Urine Culture Comments 05/13/19 Range/Units 07:40 WBC (4.8-10.8) x10^3/uL RBC (4.70-6.10) 10^6/uL Hgb (14.0-18.0) g/dL Hct (42.0-52.0) % MCV (80.0-94.0) fL MCH (27.0-31.0) pg MCHC (32.0-36.0) g/dL RDW (12.0-15.0) % Plt Count (130-450) 10^3/uL MPV (7.4-11.4) fL Neut # (Auto) (1.5-6.6) 10^3/uL Lymph # (Auto) (1.5-3.5) 10^3/uL [place] # (Auto) (0.0-1.0) 10^3/uL Eos # (Auto) (0.0-0.7) 10^3/uL Baso # (Auto) (0.0-0.1) 10^3/uL Absolute Nucleated RBC x10^3/uL Nucleated RBC % /100WBC Sodium (135-145) mmol/L Potassium (3.5-5.0) mmol/L Chloride (101-111) mmol/L Carbon Dioxide (21-32) mmol/L Anion Gap (6-13) BUN (6-20) mg/dL Creatinine (0.6-1.2) mg/dL Estimated GFR (MDRD) (>89) Glucose (70-100) mg/dL POC Whole Bld Glucose (70 - 100) mg/dL Glycated Hemoglobin (4.6-6.2) % Estim Average Glucose (70-100) Calcium (8.5-10.3) mg/dL Urine Color YELLOW Urine Clarity CLEAR (CLEAR) Urine pH 6.0 (5.0-7.5) PH Ur Specific [place] <=1.005 (1.002-1.030) Urine Protein NEGATIVE (NEGATIVE) mg/dL Urine Glucose (UA) 250 H (NEGATIVE) mg/dL Urine Ketones NEGATIVE (NEGATIVE) mg/dL Urine Occult Blood NEGATIVE (NEGATIVE) Urine Nitrite NEGATIVE (NEGATIVE) Urine Bilirubin NEGATIVE (NEGATIVE) Urine Urobilinogen 0.2 (NORMAL) (NORMAL) E.U./dL Ur Leukocyte Esterase NEGATIVE (NEGATIVE) Ur Microscopic Review NOT INDICATED Urine Culture Comments NOT INDICATED - Diagnostic Imaging Diagnostic Imaging Results: positive: Final report reviewed ABX Reporting Has patient been on IV antibiotics over the past 48 hours?: No Assessment/Plan - Problem List (1) Acute ischemic colitis Impression: CT reveals diffuse colon ischemia, with leukocytosis to 12.3, today WBC down to 10.4 -Continue IVF hydration -Remains on piperacillin-tazobactam for empiric coverage -CTa reveals patent SMA, no thrombus, and no evidence of mesenteric ischemia, diffuse colonic wall thickening, and diverticulosis. There is mild narrowing of the SHIVANI (previous CTa in 2017 showed clear, patent SHIVANI, so this is a progression). -Revised Cardiac Risk Index Class III Risk, 2 points, 10.1% risk of cardiac mortality if taken to surgery and would require transfer to higher level of care. Indications for surgery include: development of peritonitis, sepsis, or clinical deterioration (persistent fever, increase in leukocytosis, lactic acidosis, or evidence of strictures) -Will continue to monitor this patient very closely due to pancolitis from presumed ischemic bowel -OK for clear liquid diet, avoid red colored foods/drinks (2) Type 2 diabetes mellitus, uncontrolled Impression: Presented with blood sugar of 264, reporting poor compliance with home diabetic regimen of metformin, aspart and lantus. -Sugars in low 200s overnight, down to 160s this am -Holding metformin for now -Continue Lantus at ~80% of home dose (due to low PO intake at this time) at HS -Continue with insulin aspart SSI per protocol -Hgb A1C: (3) Essential hypertension Impression: Remains stable on home regimen -Continuing lisinopril and HCTZ at home doses (4) Hypothyroid Impression: Stable, Continue on levothyroxine (5) TWAN on CPAP Impression: Did not have CPAP in hospital with him overnight and subsquently had a poor night's sleep, unable to find comfortable position. - coming in today and plans to bring CPAP, patient plans to nap this afternoon once it arrives -O2 Sats stable on RA <Nikia Molina L - Last Filed: 05/14/19 16:23> Subjective - Subjective Subjective: he just wants to sleep today and asks to be left alone with his CPAP for a bit. Objective - Vital Signs/Intake & Output Vital Signs: Vital Signs x48h Temp Pulse Resp BP Pulse Ox 05/14/19 15:56 37.0 C 74 18 100/68 95 05/14/19 09:00 36.6 C 83 18 131/60 H 98 Intake & Output: Intake & Output 05/11/19 05/12/19 05/13/19 05/14/19 23:59 23:59 23:59 23:59 Intake Total 2467.667 2493.333 Output Total 1300 2700 Balance 1167.667 -206.667 - Objective Comments/Other: patient examined and exam is without change - Lab Results Fish Bones: 05/14/19 06:05 05/14/19 06:05 Other Labs: Lab Results x24hrs 05/14/19 05/14/19 05/14/19 Range/Units 11:44 09:00 07:55 WBC (4.8-10.8) x10^3/uL RBC (4.70-6.10) 10^6/uL Hgb (14.0-18.0) g/dL Hct (42.0-52.0) % MCV (80.0-94.0) fL MCH (27.0-31.0) pg MCHC (32.0-36.0) g/dL RDW (12.0-15.0) % Plt Count (130-450) 10^3/uL MPV (7.4-11.4) fL Neut # (Auto) (1.5-6.6) 10^3/uL Lymph # (Auto) (1.5-3.5) 10^3/uL [place] # (Auto) (0.0-1.0) 10^3/uL Eos # (Auto) (0.0-0.7) 10^3/uL Baso # (Auto) (0.0-0.1) 10^3/uL Absolute Nucleated RBC x10^3/uL Nucleated RBC % /100WBC Sodium (135-145) mmol/L Potassium (3.5-5.0) mmol/L Chloride (101-111) mmol/L Carbon Dioxide (21-32) mmol/L Anion Gap (6-13) BUN (6-20) mg/dL Creatinine (0.6-1.2) mg/dL Estimated GFR (MDRD) (>89) Glucose (70-100) mg/dL POC Whole Bld Glucose 154 H 166 H (70 - 100) mg/dL Calcium (8.5-10.3) mg/dL C-React Prot High Sens 56.1 mg/L 05/14/19 05/14/19 05/13/19 Range/Units 06:05 06:05 20:40 WBC 10.4 (4.8-10.8) x10^3/uL RBC 4.22 L (4.70-6.10) 10^6/uL Hgb 12.8 L (14.0-18.0) g/dL Hct 36.4 L (42.0-52.0) % MCV 86.3 (80.0-94.0) fL MCH 30.3 (27.0-31.0) pg MCHC 35.2 (32.0-36.0) g/dL RDW 12.8 (12.0-15.0) % Plt Count 154 (130-450) 10^3/uL MPV 9.1 (7.4-11.4) fL Neut # (Auto) 7.7 H (1.5-6.6) 10^3/uL Lymph # (Auto) 1.7 (1.5-3.5) 10^3/uL [place] # (Auto) 0.9 (0.0-1.0) 10^3/uL Eos # (Auto) 0.1 (0.0-0.7) 10^3/uL Baso # (Auto) 0.0 (0.0-0.1) 10^3/uL Absolute Nucleated RBC 0.00 x10^3/uL Nucleated RBC % 0.0 /100WBC Sodium 136 (135-145) mmol/L Potassium 3.6 (3.5-5.0) mmol/L Chloride 101 (101-111) mmol/L Carbon Dioxide 23 (21-32) mmol/L Anion Gap 12.0 (6-13) BUN 15 (6-20) mg/dL Creatinine 0.7 (0.6-1.2) mg/dL Estimated GFR (MDRD) 115 (>89) Glucose 187 H (70-100) mg/dL POC Whole Bld Glucose 209 H (70 - 100) mg/dL Calcium 8.5 (8.5-10.3) mg/dL C-React Prot High Sens mg/L 05/13/19 Range/Units 16:41 WBC (4.8-10.8) x10^3/uL RBC (4.70-6.10) 10^6/uL Hgb (14.0-18.0) g/dL Hct (42.0-52.0) % MCV (80.0-94.0) fL MCH (27.0-31.0) pg MCHC (32.0-36.0) g/dL RDW (12.0-15.0) % Plt Count (130-450) 10^3/uL MPV (7.4-11.4) fL Neut # (Auto) (1.5-6.6) 10^3/uL Lymph # (Auto) (1.5-3.5) 10^3/uL [place] # (Auto) (0.0-1.0) 10^3/uL Eos # (Auto) (0.0-0.7) 10^3/uL Baso # (Auto) (0.0-0.1) 10^3/uL Absolute Nucleated RBC x10^3/uL Nucleated RBC % /100WBC Sodium (135-145) mmol/L Potassium (3.5-5.0) mmol/L Chloride (101-111) mmol/L Carbon Dioxide (21-32) mmol/L Anion Gap (6-13) BUN (6-20) mg/dL Creatinine (0.6-1.2) mg/dL Estimated GFR (MDRD) (>89) Glucose (70-100) mg/dL POC Whole Bld Glucose 207 H (70 - 100) mg/dL Calcium (8.5-10.3) mg/dL C-React Prot High Sens mg/L - Diagnostic Imaging Diagnostic Imaging Comments: EXAM: [id number] CT/ABPEANG ([id number]) Reason: total colon ischemia colitis Procedure Date: 05/13/2019 Accession Number: [id number] / [id number] Procedure: CT - ANGIO ABDOMEN/PELVIS W CPT Code: EXAM: CT ANGIOGRAM ABDOMEN AND PELVIS WITH CONTRAST EXAM DATE: 05/13/2019 06:22 PM. CLINICAL HISTORY: Total colon ischemia colitis. COMPARISONS: ABDOMEN/PELVIS W/ 05/13/2019 8:34 AM. TECHNIQUE: Routine helical CT angiogram imaging was performed through the abdomen and pelvis in the arterial phase. IV contrast: 99 cc Optiray 320. Enteric contrast: No. Reconstructions: Coronal, sagittal, and 3D MIP reconstructions. In accordance with CT protocol optimization, one or more of the following dose reduction techniques were utilized for this exam: automated exposure control, adjustment of mA and/or KV based on patient size, or use of iterative reconstructive technique. FINDINGS: Vasculature: No aneurysm, dissection, There is mild to moderate atherosclerotic changes of the abdominal aorta. Mild narrowing of the celiac artery. SMA patent. Mild narrowing origin of the SHIVANI. No thrombosis of the mesenteric arteries. Lung Bases: Normal. Abdominal Solid Organs: Normal. The liver, spleen, pancreas, adrenal glands, gallbladder and kidneys are normal in size and demonstrate no masses or abnormal enhancement. Peritoneal Cavity: Diffuse colonic wall thickening sparing portions of the ascending colon cecum and rectum. Pericolonic stranding. Small amount of free fluid left paracolic gutter, left pelvis. Diverticulosis. Small retroperitoneal, mesenteric lymph nodes less than 1 cm.. No pneumatosis. No free air. No free fluid, free air, Pelvic Organs: Mild prostate enlargement. The bladder and visualized pelvic organs are otherwise within normal limits. Bones: DJD spine Other: No portal venous air. IMPRESSION: 1. No evidence for mesenteric ischemia. 2. Diffuse colonic wall thickening. 3. Diverticulosis ABX Reporting Has patient been on IV antibiotics over the past 48 hours?: Yes Assessment/Plan - Problem List (1) Acute ischemic colitis Impression: We have presumed that he has another episode of ischemic colitis because of his previous history. The pathology on that biopsy from 2017 confirmed ischemic colitis. His cultures are negative. C. difficile is negative. I do not think this is infectious colitis. We were alarmed because he had pancolitis and did a CT angiogram. That is negative. Plan: Continue antibiotics until no white cell is present. Transition to oral antibiotics. Advance diet at that time and then he can go home His diabetes mellitus is mildly uncontrolled and we will be increasing his Lantus to 22 units. 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 We have asked him to try and take note of his A1c, weight, and blood pressure and try to modify those risk factors.
[2019-05-14] MEDS: FOLIC ACID 1 MG TABLET PO SCH (09:53)
[2019-05-14] MEDS: POLYETHYLENE GLYCOL 3350 17 GM PACKET PO SCH (09:54)
[2019-05-14] MEDS ORDERED: PROMETHAZINE 25 MG TABLET PO PRN (11:39)
[2019-05-14] MEDS: TAMSULOSIN 0.4 MG CAPSULE PO SCH (13:07)
[2019-05-14] MEDS: SODIUM CHLORIDE FLUSH 0.9% 10 ML SYRINGE IVP PRN (13:34)
[2019-05-14] MEDS: GABAPENTIN 300 MG CAPSULE PO SCH ×2 (16:35→21:12)
[2019-05-14] MEDS: PROMETHAZINE INJ 25 MG in SODIUM CHLORIDE 0.9% 50 ML IV PRN (16:36)
[2019-05-14] MEDS ORDERED: INSULIN GLARGINE 300 UNIT/3 ML PEN SUBQ SCH (21:00)
[2019-05-14] MEDS: ATORVASTATIN 40 MG TABLET PO SCH (21:12)
[2019-05-15] MEDS: SODIUM CHLORIDE 0.9% 1,000 ML IV SCH ×2 (01:05→12:26)
[2019-05-15] MEDS: HYDROmorphone 1 MG/ML CARPUJECT IVP PRN ×5 (01:10→19:34)
[2019-05-15] MEDS: SODIUM CHLORIDE FLUSH 0.9% 10 ML SYRINGE IVP SCH ×3 (01:13→17:08)
[2019-05-15] MEDS: PROMETHAZINE INJ 25 MG in SODIUM CHLORIDE 0.9% 50 ML IV PRN ×3 (01:13→16:24)
[2019-05-15] MEDS: PIPERACILLIN/TAZOBACTAM 4.5 GM in SODIUM CHLORIDE 0.9% MINIBAG 100 ML IV SCH ×2 (01:44→06:52)
[2019-05-15 06:47] LABS: BASOPHILS % (AUTO) 0.2 %; EOSINOPHILS # (AUTO) 0.1 10^3/uL (0.0-0.7); EOSINOPHILS % (AUTO) 1.5 %; HGB - HEMOGLOBIN 12.1 g/dL (14.0-18.0); LYMPHOCYTES # (AUTO) 2.7 10^3/uL (1.5-3.5); LYMPHOCYTES % (AUTO) 31.4 %; MEAN CORPUSCULAR HEMOGLOBIN 30.2 pg (27.0-31.0); MEAN CORPUSCULAR HGB CONC 34.2 g/dL (32.0-36.0); MEAN CORPUSCULAR VOLUME 88.3 fL (80.0-94.0); MEAN PLATELET VOLUME 9.3 fL (7.4-11.4); MONOCYTES # (AUTO) 0.6 10^3/uL (0.0-1.0); MONOCYTES % (AUTO) 7.2 %; NEUTROPHILS # (AUTO) 5.1 10^3/uL (1.5-6.6); NEUTROPHILS % (AUTO) 59.5 %; PLT - PLATELET COUNT 150 10^3/uL (130-450); RED BLOOD COUNT 4.01 10^6/uL (4.70-6.10); RED CELL DISTRIBUTION WIDTH 13.4 % (12.0-15.0); WHITE BLOOD COUNT 8.6 x10^3/uL (4.8-10.8)
[2019-05-15] MEDS: LEVOTHYROXINE 100 MCG TABLET PO SCH (06:48)
[2019-05-15] MEDS: GABAPENTIN 300 MG CAPSULE PO SCH ×3 (06:48→21:35)
[2019-05-15 07:10] LABS: CALCIUM 8.2 mg/dL (8.5-10.3); CREATININE 0.7 mg/dL (0.6-1.2)
--- NOTE | 2019-05-15 08:46 | PROVIDER PROGRESS NOTE ---
Subjective - Prog Note Date Prog Note Date: 05/15/19 Prog Note Time: 08:50 - Subjective Subjective: He slept much better yesterday and last night so that improved him tremendously. Still with intermittent left lower quadrant pain. Last Dilaudid use was this morning at 645. Current Medications - Current Medications Current Medications: Active Medications Atorvastatin Calcium (Lipitor) 40 mg PO QPM [facility] Last Admin: 05/14/19 21:12 Dose: 40 mg Ciprofloxacin (Cipro) 500 mg PO BID JUDY Cyclobenzaprine HCl (Flexeril) 10 mg PO TID PRN PRN Reason: Spasms Last Admin: 05/14/19 06:54 Dose: 10 mg Folic Acid () 1 mg PO DAILY [facility] Last Admin: 05/14/19 09:53 Dose: Not Given Gabapentin (Neurontin) 300 mg PO TID [facility] Last Admin: 05/15/19 06:48 Dose: 300 mg Hydromorphone HCl (Dilaudid Inj Carp) 1 mg IVP Q2HR PRN PRN Reason: Pain 8 to 10 Last Admin: 05/15/19 06:42 Dose: 1 mg Sodium Chloride (Normal Saline 0.9%) 1,000 mls @ 100 mls/hr IV .Q10H [facility] Last Infusion: 05/15/19 02:20 Dose: 100 mls/hr Promethazine HCl 25 mg/ Sodium (Chloride) 51 mls @ 100 mls/hr IV Q6H PRN PRN Reason: Nausea / Vomiting Last Infusion: 05/15/19 01:44 Dose: Infused Insulin Aspart (Novolog) 1 - 9 unit SUBQ 0800,1200,1700,2100 JUDY; Protocol Last Admin: 05/14/19 21:16 Dose: Not Given Insulin Glargine (Lantus Solostar) 22 unit SUBQ QPM [facility] Last Admin: 05/14/19 21:16 Dose: 22 unit Levothyroxine Sodium (Synthroid) 100 mcg PO QDAC [facility] Last Admin: 05/15/19 06:48 Dose: 100 mcg Metronidazole (Flagyl) 500 mg PO Q8H JUDY Ondansetron HCl (Zofran Odt) 4 mg TL Q6HR PRN PRN Reason: Nausea / Vomiting Last Admin: 05/13/19 14:21 Dose: 4 mg Ondansetron HCl (Zofran Inj) 4 mg IVP Q4HR PRN PRN Reason: Nausea / Vomiting Last Admin: 05/14/19 07:01 Dose: 4 mg Oxycodone HCl (Roxicodone) 5 mg PO Q4HR PRN PRN Reason: Pain 5 to 7 Polyethylene Glycol (Miralax) 17 gm PO DAILY [facility] Last Admin: 05/14/19 09:54 Dose: Not Given Promethazine HCl (Phenergan) 25 mg PO Q6HR PRN PRN Reason: Nausea / Vomiting Sodium Chloride (Normal Saline Flush 0.9%) 10 ml IVP PRN PRN PRN Reason: NEEDED PER PROVIDER ORDERS Last Admin: 05/14/19 13:34 Dose: 10 ml Sodium Chloride (Normal Saline Flush 0.9%) 10 ml IVP 0100,0900,1700 [facility] Last Admin: 05/15/19 01:13 Dose: 10 ml Tamsulosin HCl (Flomax) 0.4 mg PO DAILY [facility] Last Admin: 05/14/19 13:07 Dose: 0.4 mg Aspirin 325 mg PO DAILY 02/20/17 Levothyroxine Sodium [Synthroid] 100 mcg PO DAILY 02/20/17 Lisinopril 40 mg PO DAILY 02/20/17 Metformin HCl 1,000 mg PO BID 02/20/17 Atorvastatin Calcium 40 mg PO QPM 05/13/19 Dulaglutide [Trulicity] 0.75 mg SQ WE 05/13/19 Folic Acid 1 mg PO DAILY 05/13/19 Gabapentin [Neurontin] 300 mg PO TID 05/13/19 Insulin Aspart [NovoLOG] 25 unit SUBQ BID 05/13/19 Insulin Glargine [Lantus Solostar] 25 unit SUBQ QPM 05/13/19 Lisinopril [Prinivil] 20 mg PO QPM 05/13/19 hydroCHLOROthiazide [Hydrochlorothiazide] 25 mg PO DAILY 05/13/19 Objective - Vital Signs/Intake & Output Reviewed Vital Signs: Yes Intake & Output: Intake & Output 05/12/19 05/13/19 05/14/19 05/15/19 23:59 23:59 23:59 23:59 Intake Total 2467.667 3884.333 269.333 Output Total 1300 3050 325 Balance 1167.667 834.333 -55.667 - Objective General Appearance: positive: No acute distress, Alert, Other (He likes to sit in the dark, watch TV his glasses on, is comfortable. Is tolerating a regular diet with carb control right now.) Eyes Bilateral: positive: PERRL, EOMI Neck: positive: No JVD. negative: Stiff neck, Carotid bruit Respiratory: positive: Chest non-tender. negative: Wheezes, Rales, Rhonchi Cardiovascular: positive: Regular rate & rhythm. negative: Gallop/S4, Friction rub Abdomen: positive: No organomegaly, Nml bowel sounds, No distention, Tenderness (Left lower quadrant). negative: Guarding, Rebound Rectal: positive: Bloody stool (1 today) Skin: positive: Warm, Dry Extremities: positive: Full ROM, No pedal edema Neurologic/Psychiatric: positive: Oriented x3, CN's nml (2-12), Motor nml - Lab Results Fish Bones: 05/15/19 05:42 05/15/19 05:42 Other Labs: Lab Results x24hrs 05/15/19 05/15/19 05/15/19 Range/Units 07:35 05:42 05:42 WBC (4.8-10.8) x10^3/uL RBC (4.70-6.10) 10^6/uL Hgb (14.0-18.0) g/dL Hct (42.0-52.0) % MCV (80.0-94.0) fL MCH (27.0-31.0) pg MCHC (32.0-36.0) g/dL RDW (12.0-15.0) % Plt Count (130-450) 10^3/uL MPV (7.4-11.4) fL Neut # (Auto) (1.5-6.6) 10^3/uL Lymph # (Auto) (1.5-3.5) 10^3/uL [place] # (Auto) (0.0-1.0) 10^3/uL Eos # (Auto) (0.0-0.7) 10^3/uL Baso # (Auto) (0.0-0.1) 10^3/uL Absolute Nucleated RBC x10^3/uL Nucleated RBC % /100WBC Sodium 137 (135-145) mmol/L Potassium 3.4 L (3.5-5.0) mmol/L Chloride 104 (101-111) mmol/L Carbon Dioxide 24 (21-32) mmol/L Anion Gap 9.0 (6-13) BUN 9 (6-20) mg/dL Creatinine 0.7 (0.6-1.2) mg/dL Estimated GFR (MDRD) 115 (>89) Glucose 121 H (70-100) mg/dL POC Whole Bld Glucose 119 H (70 - 100) mg/dL Calcium 8.2 L (8.5-10.3) mg/dL C-React Prot High Sens 38.5 mg/L 05/15/19 05/14/19 05/14/19 Range/Units 05:42 21:15 16:36 WBC 8.6 (4.8-10.8) x10^3/uL RBC 4.01 L (4.70-6.10) 10^6/uL Hgb 12.1 L (14.0-18.0) g/dL Hct 35.4 L (42.0-52.0) % MCV 88.3 (80.0-94.0) fL MCH 30.2 (27.0-31.0) pg MCHC 34.2 (32.0-36.0) g/dL RDW 13.4 (12.0-15.0) % Plt Count 150 (130-450) 10^3/uL MPV 9.3 (7.4-11.4) fL Neut # (Auto) 5.1 (1.5-6.6) 10^3/uL Lymph # (Auto) 2.7 (1.5-3.5) 10^3/uL [place] # (Auto) 0.6 (0.0-1.0) 10^3/uL Eos # (Auto) 0.1 (0.0-0.7) 10^3/uL Baso # (Auto) 0.0 (0.0-0.1) 10^3/uL Absolute Nucleated RBC 0.00 x10^3/uL Nucleated RBC % 0.0 /100WBC Sodium (135-145) mmol/L Potassium (3.5-5.0) mmol/L Chloride (101-111) mmol/L Carbon Dioxide (21-32) mmol/L Anion Gap (6-13) BUN (6-20) mg/dL Creatinine (0.6-1.2) mg/dL Estimated GFR (MDRD) (>89) Glucose (70-100) mg/dL POC Whole Bld Glucose 146 H 145 H (70 - 100) mg/dL Calcium (8.5-10.3) mg/dL C-React Prot High Sens mg/L 05/14/19 05/14/19 Range/Units 11:44 09:00 WBC (4.8-10.8) x10^3/uL RBC (4.70-6.10) 10^6/uL Hgb (14.0-18.0) g/dL Hct (42.0-52.0) % MCV (80.0-94.0) fL MCH (27.0-31.0) pg MCHC (32.0-36.0) g/dL RDW (12.0-15.0) % Plt Count (130-450) 10^3/uL MPV (7.4-11.4) fL Neut # (Auto) (1.5-6.6) 10^3/uL Lymph # (Auto) (1.5-3.5) 10^3/uL [place] # (Auto) (0.0-1.0) 10^3/uL Eos # (Auto) (0.0-0.7) 10^3/uL Baso # (Auto) (0.0-0.1) 10^3/uL Absolute Nucleated RBC x10^3/uL Nucleated RBC % /100WBC Sodium (135-145) mmol/L Potassium (3.5-5.0) mmol/L Chloride (101-111) mmol/L Carbon Dioxide (21-32) mmol/L Anion Gap (6-13) BUN (6-20) mg/dL Creatinine (0.6-1.2) mg/dL Estimated GFR (MDRD) (>89) Glucose (70-100) mg/dL POC Whole Bld Glucose 154 H (70 - 100) mg/dL Calcium (8.5-10.3) mg/dL C-React Prot High Sens 56.1 mg/L ABX Reporting Has patient been on IV antibiotics over the past 48 hours?: Yes Assessment/Plan - Problem List (1) Acute ischemic colitis Impression: CT reveals diffuse colitis, with leukocytosis to 12.3, today WBC down to 8.6 from 12.3 -CTa reveals patent SMA, no thrombus, and no evidence of mesenteric ischemia, diffuse colonic wall thickening, and diverticulosis. There is mild narrowing of the SIHVANI (previous CTa in 2017 showed clear, patent SHIVANI, so this is a progression).We are treating him as ischemic colitis because a previous colonoscopy, 2 years ago, with the same presentation, showed ischemic colitis on pathology. -Revised Cardiac Risk Index Class III Risk, 2 points, 10.1% risk of cardiac mortality if taken to surgery and would require transfer to higher level of care. Indications for surgery include: development of peritonitis, sepsis, or clinical deterioration (persistent fever, increase in leukocytosis, lactic acidosis, or evidence of strictures) Duration of therapy for ischemic colitis is variable in clinical trial data, especially for severe disease is very sparse. In mild to moderate peritonitis, which this patient had, clinical trials found comparable clinical outcomes in patients treated for 4 days versus treated until vital signs and GI continuity had returned (mean of 8 days). These were patients who had source control procedure. This gentlemen's course is uncomplicated. He has not had surgery. Plan: As such I will transition to oral antibiotics empirically. Advance diet today.I spoke to Dr. Perkins, [facility] gastroenterology. He doubts that patient has ischemic colitis because it is involving the cecum, and ascending bowel. He suspects that this may be inflammatory bowel disease. We have already checked cultures and those are negative. He does not want empiric steroids at this time. He is okay with this finishing oral antibiotics. He would like the patient referred to [facility] gastroenterology and they will see him in follow-up with another colonoscopy in the next month. (2) Type 2 diabetes mellitus, uncontrolled Impression: Presented with blood sugar of 264, reporting poor compliance with home diabetic regimen of metformin, aspart and lantus. -Glucose 05/13: 166, 154, 145. 05/14: 121 Today 119, 126. I let him know that his glycosylated hemoglobin is 9.7%. He states that he is never been below 7% that he is aware of. -Holding metformin for now -Resume Lantus home dose since I am not going to be advancing his diet from clears to diabetic diet -Continue with insulin aspart SSI per protocol -Hgb A1C: 9.7% (3) Essential hypertension Impression: Remains stable on home regimen -Continuing lisinopril and HCTZ at home doses (4) Hypothyroid Impression: Stable, Continue on levothyroxine (5) TWAN on CPAP Impression: Did not have CPAP in hospital with him overnight and subsquently had a poor night's sleep, unable to find comfortable position. - brought CPAP 05/14 and he slept yesterday and last night -O2 Sats stable on RA
[2019-05-15] MEDS: INSULIN ASPART 300 UNIT/3 ML PEN SUBQ SCH ×6 (09:03→21:01)
[2019-05-15] MEDS: CIPROFLOXACIN 250 MG TABLET PO SCH ×2 (09:31→21:35)
[2019-05-15] MEDS: POLYETHYLENE GLYCOL 3350 17 GM PACKET PO SCH (09:32)
[2019-05-15] MEDS: TAMSULOSIN 0.4 MG CAPSULE PO SCH (09:32)
[2019-05-15] MEDS: FOLIC ACID 1 MG TABLET PO SCH (09:32)
[2019-05-15] MEDS: metroNIDAZOLE 250 MG TABLET PO SCH ×2 (09:32→17:08)
--- NOTE | 2019-05-15 18:16 | Discharge Plan ---
Discharge Plan Problem Reviewed?: Yes Diet: Diabetic Activity Restrictions: Activity as Tolerated Shower Restrictions: No Driving Restrictions: No No Smoking: If you smoke, Please STOP! Call for help. Disposition: 01 Home, Self Care Condition: Stable Prescriptions: Ciprofloxacin [Cipro] 500 mg PO BID #10 tablet diazePAM [Valium] 5 mg PO DAILY PRN #4 tablet PRN Reason: Anxiety metroNIDAZOLE [Flagyl] 500 mg PO Q8H #30 tablet Tamsulosin [Flomax] 0.4 mg PO DAILY #30 capsule Instruction Topics: Colitis Ischemic Health Concerns: Abdominal pain with nausea vomiting and bloody diarrhea. We found you to have recurrence of colitis of your entire bowel. You had this before, 2 years ago and were diagnosed as ischemic colitis. With this admission all stool cultures are negative for infection. You have been placed on empiric antibiotics to treat any inflammation that may be present. While here you also had problems with urinary retention. We started you on Flomax. Your diabetes is uncontrolled. Your A1c is 9.7%. Goal should be less than 7%. Plan of Treatment: Finish oral antibiotics for the next 5 days (Cipro and Flagyl). Go home a new prescription for Flomax. Follow-up with [facility] gastroenterology. You need an opinion with a healthcare architect as to the possibility of new onset inflammatory bowel disease such as Crohn's colitis or ulcerative colitis. Please have your primary care provider refer you. Care Goals: See your primary care provider in the next 2 weeks. Refer to [facility] Gastroenter[facility] Plan on having a colonoscopy in the next 1 to 2 months Be careful traveling across country. Make sure you do not get a DVT (blood clot in leg). I do not recommend you do all the driving when you are [place]. You have asked for a prescription of 4 tablets of Valium to help you with your fear of flying and that was prescribed. Assessment: Patient expresses understanding of his treatment and also understanding of what the goals are. Follow-up with: DMITRI VEGA, [Primary Care Provider] -
[2019-05-15] MEDS ORDERED: INSULIN GLARGINE 300 UNIT/3 ML PEN SUBQ SCH (21:00)
[2019-05-15] MEDS: ATORVASTATIN 40 MG TABLET PO SCH (21:35)
[2019-05-16] MEDS: SODIUM CHLORIDE 0.9% 1,000 ML IV SCH (00:19)
[2019-05-16] MEDS: metroNIDAZOLE 250 MG TABLET PO SCH ×2 (00:19→08:55)
[2019-05-16] MEDS: SODIUM CHLORIDE FLUSH 0.9% 10 ML SYRINGE IVP SCH ×2 (00:20→08:56)
[2019-05-16 05:07] LABS: BASOPHILS % (AUTO) 0.3 %; EOSINOPHILS # (AUTO) 0.1 10^3/uL (0.0-0.7); EOSINOPHILS % (AUTO) 1.7 %; HGB - HEMOGLOBIN 10.6 g/dL (14.0-18.0); LYMPHOCYTES # (AUTO) 2.4 10^3/uL (1.5-3.5); LYMPHOCYTES % (AUTO) 30.7 %; MEAN CORPUSCULAR HGB CONC 35.1 g/dL (32.0-36.0); MEAN CORPUSCULAR VOLUME 85.6 fL (80.0-94.0); MEAN PLATELET VOLUME 9.1 fL (7.4-11.4); MONOCYTES # (AUTO) 0.6 10^3/uL (0.0-1.0); MONOCYTES % (AUTO) 8.3 %; NEUTROPHILS # (AUTO) 4.5 10^3/uL (1.5-6.6); NEUTROPHILS % (AUTO) 58.6 %; PLT - PLATELET COUNT 132 10^3/uL (130-450); RED BLOOD COUNT 3.53 10^6/uL (4.70-6.10); RED CELL DISTRIBUTION WIDTH 13.2 % (12.0-15.0); WHITE BLOOD COUNT 7.7 x10^3/uL (4.8-10.8)
[2019-05-16 05:19] LABS: CALCIUM 7.9 mg/dL (8.5-10.3); CREATININE 0.7 mg/dL (0.6-1.2)
[2019-05-16] MEDS: GABAPENTIN 300 MG CAPSULE PO SCH (05:48)
[2019-05-16] MEDS: LEVOTHYROXINE 100 MCG TABLET PO SCH (05:48)
[2019-05-16] MEDS: INSULIN ASPART 300 UNIT/3 ML PEN SUBQ SCH ×4 (08:54→11:46)
[2019-05-16] MEDS: POLYETHYLENE GLYCOL 3350 17 GM PACKET PO SCH (08:55)
[2019-05-16] MEDS: TAMSULOSIN 0.4 MG CAPSULE PO SCH (08:55)
[2019-05-16] MEDS: CIPROFLOXACIN 250 MG TABLET PO SCH (08:55)
[2019-05-16] MEDS: FOLIC ACID 1 MG TABLET PO SCH (08:55)
[2019-05-16] MEDS ORDERED: POTASSIUM CHLORIDE 20 MEQ TABLET PO ONE (09:22)
[2019-05-16] MEDS: POTASSIUM CHLOR 10 MEQ/100 ML 10 MEQ/100 ML BAG IV SCH ×2 (09:55→11:05)
[2019-05-16 12:03] VITALS: BP 130/65
--- NOTE | 2019-05-20 18:51 | DISCHARGE SUMMARY ---
"Discharge Summary Admit Date: 05/13/19 Discharge Date: 05/15/19 Discharging Provider: Dr Celeste Montemayor Primary Care Provider: Yuki Vegas Code Status: Attempt Resuscitation Condition at Discharge: Stable Discharge Disposition: 01 Home, Self Care - DIAGNOSES Admission Diagnoses: 1) Rojo colitis 2) HTN 3) DM Discharge Diagnoses with Status of Each Condition: See each below in Hospital course - HPI History of Present Illness: This is a 63-year-old male with history of diabetes, hypertension and hypothyroidism. In February 2017 he had a presentation with colitis and gastroenteritis of unknown etiology and had colonoscopy with biopsy that showed ischemic colitis. He has a history of 8 months of intermittent abdominal pain. He presented now with several hours of worse abdominal pain then nausea vomiting and june bloody diarrhea. In the ER the CT of the abdomen/pelvis showed d iffuse liver attenuation consistent with fatty infiltration and diffuse colonic wall thickening compatible with colitis. White count elevated at 12.3, elevated LFTs with AST 53 and ALT 83. Elevated glucose at 264. - CONSULTS | PROCEDURES Procedures: None - HOSPITAL COURSE Hospital Course: (1) Acute ischemic colitis CT revealed diffuse colitis and CTA revealed patent SMA, no thrombus, and no evidence of mesenteric ischemia, diffuse colonic wall thickening, and diverticul osis. There is mild narrowing of the SHIVANI (previous CTA in 2017 showed clear, patent SHIVANI, so this is a progression). He was treated as ischemic colitis because a previous colonoscopy, 2 years ago, with the same presentation, showed ischemic colitis on pathology. His Revised Cardiac Risk Index Class III Risk, 2 points, 10.1% risk of cardiac mortality if taken to surgery and would require transfer to higher level of care. This gentlemen's course was uncomplicated. He did not have surgery. He was on iv antibiotics then transition to oral antibiotics empirically, diet advanced. The Hospitalist spoke to Dr. Perkins, [facility]ologywho that patient has ischemic colitis because it is involving the cecum, and ascending bowel. He suspects that this may be inflammatory bowel disease. We have already checked cultures and those are negative. He does not want empiric steroids at this time. He is okay with this finishing oral antibiotics. He would like the patient referred to [facility] gastroenterology and they will see him in follow-up with another colonoscopy in the next month. On the day of discharge he had no abdominal pain and was tolerating advancing his diet (2) Type 2 diabetes mellitus, uncontrolled He presented with blood sugar of 264, reporting poor compliance with home diabetic regimen of metformin, Aspart and Lantus. A1c was 9.7. He was on clear liquids while here, will be advancing his diet back to a carb controlled diet on his own. (3) Essential hypertension His BP remained stable on home regimen of Lisinopril and HCTZ at home doses. (4) Hypothyroid Continued on levothyroxine while here. (5) TWAN on CPAP He did not have his CPAP in hospital with him initially and had a poor night's sleep, unable to find comfortable position. The subsequently brought in the CPAP and he could sleep. His O2 Sats were stable on RA. - ALLERGIES Allergies/Adverse Reactions: Allergies Allergy/AdvReac Type Severity Reaction Status Date / Time No Known Drug Allergies Allergy Verified 05/13/19 07:29 - MEDICATIONS Home Medications: Ambulatory Orders Medication Instructions Recorded Confirmed Aspirin 325 mg PO DAILY 02/20/17 05/13/19 Levothyroxine Sodium [Synthroid] 100 mcg PO DAILY 02/20/17 05/13/19 Lisinopril 40 mg PO DAILY 02/20/17 05/13/19 Metformin HCl 1,000 mg PO BID 02/20/17 05/13/19 Atorvastatin Calcium 40 mg PO QPM 05/13/19 05/13/19 Dulaglutide [Trulicity] 0.75 mg SQ WE 05/13/19 05/13/19 Folic Acid 1 mg PO DAILY 05/13/19 05/13/19 Gabapentin [Neurontin] 300 mg PO TID 05/13/19 05/13/19 Insulin Aspart [NovoLOG] 25 unit SUBQ BID 05/13/19 Insulin Glargine [Lantus Solostar] 25 unit SUBQ QPM 05/13/19 05/13/19 Lisinopril [Prinivil] 20 mg PO QPM 05/13/19 05/13/19 hydroCHLOROthiazide 25 mg PO DAILY 05/13/19 05/13/19 [Hydrochlorothiazide] Ciprofloxacin [Cipro] 500 mg PO BID #10 tablet 05/15/19 Tamsulosin [Flomax] 0.4 mg PO DAILY #30 capsule 05/15/19 diazePAM [Valium] 5 mg PO DAILY PRN #4 tablet 05/15/19 metroNIDAZOLE [Flagyl] 500 mg PO Q8H #30 tablet 05/15/19 diazePAM [Valium] 5 mg PO DAILY PRN #4 tablet 05/16/19 - PHYSICAL EXAM AT DISCHARGE General Appearance: positive: No acute distress Eyes Bilateral: positive: Normal inspection ENT: positive: No signs of dehydration Neck: positive: Nml inspection Respiratory: positive: No respiratory distress Cardiovascular: positive: Regular rate & rhythm Abdomen: positive: Non-tender, No distention Extremities: positive: No pedal edema - LABS Result Diagrams: 05/16/19 04:45 05/16/19 04:45 - DIAGNOSTIC IMAGING Diagnostic Imaging Results: Final report reviewed - FOLLOW UP Follow Up: F/U with PCP and Gastroenterology specialist, as described above"
== END 2019-05-16 12:31 | disposition home or self-care (01) | DRG 393 ==
LOC: ED 07:20 → MS2 12:10
PROVIDERS: ADMIT Specialist; ATTEND Internal Medicine
DX: K55.032 Diffuse acute (reversible) ischemia of large intestine (principal); K65.9 Peritonitis, unspecified; E11.65 Type 2 diabetes mellitus with hyperglycemia; T38.3X6A Underdosing of insulin and oral hypoglycemic [antidiabetic] drugs, initial encounter; Z91.128 Patient's intentional underdosing of medication regimen for other reason; Y92.009 Unspecified place in unspecified non-institutional (private) residence as the place of occurrence of the external cause; R11.0 Nausea; T40.2X5A Adverse effect of other opioids, initial encounter; Y92.230 Patient room in hospital as the place of occurrence of the external cause; R33.9 Retention of urine, unspecified; I10 Essential (primary) hypertension; E03.9 Hypothyroidism, unspecified; G47.33 Obstructive sleep apnea (adult) (pediatric); E78.5 Hyperlipidemia, unspecified; I70.90 Unspecified atherosclerosis; E11.40 Type 2 diabetes mellitus with diabetic neuropathy, unspecified; Z79.899 Other long term (current) drug therapy; Z79.4 Long term (current) use of insulin; Z79.82 Long term (current) use of aspirin; Z90.49 Acquired absence of other specified parts of digestive tract; Z72.9 Problem related to lifestyle, unspecified
CPT/HCPCS: 36415; 74174; 74177; 80048; 80053; 81003; 83036; 83690; 84484; 85025; 86141; 96361; 96374; 99283; 99284; A9270; J1170; J1815; J7040; Q0162; Q0169; Q9967; 81001; 87086

== ENCOUNTER 2019-11-21 18:22 | Emergency (ER) | payer OTHER ==
[2019-11-21 18:32] VITALS: BP 166/87
[2019-11-21] MEDS ORDERED: BUFFERED LIDOCAINE 10 ML SYRINGE SUBQ STA (19:12)
[2019-11-21] MEDS ORDERED: CLINDAMYCIN 150 MG CAPSULE PO STA (19:12)
--- NOTE | 2019-11-21 19:14 | ED Physician Documentation ---
PD HPI HEENT - Stated complaint Stated Complaint: RT SIDE NECK SWELLING - Chief complaint Chief Complaint: Heent - History obtained from History obtained from: Patient - History of Present Illness Timing - onset: Other (For the past 3 days or so he has had a painful lump on the back of the right side of the neck with some nausea and chills. No fevers. No history of MRSA.) Review of Systems Constitutional: reports: Reviewed and negative Ears: reports: Reviewed and negative Nose: reports: Reviewed and negative PD PAST MEDICAL HISTORY - Past Medical History Past Medical History: Yes Cardiovascular: Hypertension, High cholesterol Respiratory: Shortness of breath Neuro: None Endocrine/Autoimmune: Type 2 diabetes GI: Chronic diarrhea, Other : None HEENT: None Psych: None Musculoskeletal: None Derm: Other - Past Surgical History Past Surgical History: Yes General: Cholecystectomy - Present Medications Home Medications: Ambulatory Orders Medication Instructions Recorded Confirmed Aspirin 325 mg PO DAILY 02/20/17 05/13/19 Levothyroxine Sodium [Synthroid] 100 mcg PO DAILY 02/20/17 05/13/19 Metformin HCl 1,000 mg PO BID 02/20/17 05/13/19 lisinopriL [Lisinopril] 40 mg PO DAILY 02/20/17 05/13/19 Atorvastatin Calcium 40 mg PO QPM 05/13/19 05/13/19 Dulaglutide [Trulicity] 0.75 mg SQ WE 05/13/19 05/13/19 Folic Acid 1 mg PO DAILY 05/13/19 05/13/19 Gabapentin [Neurontin] 300 mg PO TID 05/13/19 05/13/19 Insulin Aspart [NovoLOG] 25 unit SUBQ BID 05/13/19 Insulin Glargine [Lantus Solostar] 25 unit SUBQ QPM 05/13/19 05/13/19 hydroCHLOROthiazide 25 mg PO DAILY 05/13/19 05/13/19 [Hydrochlorothiazide] lisinopriL [Prinivil] 20 mg PO QPM 05/13/19 05/13/19 Ciprofloxacin [Cipro] 500 mg PO BID #10 tablet 05/15/19 Tamsulosin [Flomax] 0.4 mg PO DAILY #30 capsule 05/15/19 diazePAM [Valium] 5 mg PO DAILY PRN #4 tablet 05/15/19 metroNIDAZOLE [Flagyl] 500 mg PO Q8H #30 tablet 05/15/19 diazePAM [Valium] 5 mg PO DAILY PRN #4 tablet 05/16/19 Clindamycin HCl [Clindamycin 300MG 300 mg PO Q6H #40 capsule 11/21/19 CAP] - Allergies Allergies/Adverse Reactions: Allergies Allergy/AdvReac Type Severity Reaction Status Date / Time No Known Drug Allergies Allergy Verified 11/21/19 18:27 - Social History Does the pt smoke?: No Smoking Status: Never smoker Does the pt drink ETOH?: No Does the pt have substance abuse?: No - POLST Patient has POLST: No POLST Status: Full Code PD ED PE NORMAL - Vitals Vital signs reviewed: Yes - General General: Alert and oriented X 3, No acute distress - Neck Neck: Supple, no meningeal sign, Other (There is very about 3 cm around of folliculitis in the back of the neck with possible underlying central abscess and some surrounding cellulitis.) - Neuro Neuro: Alert and oriented X 3, Normal speech Results - Vitals Vitals: Vital Signs - 24 hr 11/21/19 18:27 Temperature 36.8 C Heart Rate 90 Respiratory 14 Rate Blood Pressure 166/87 H O2 Saturation 95 Oxygen O2 Source Room air Procedures - Abscess I&D (location) neck Preparation: Chlorhexadine, Lidocaine 1% Incision: Incised with scalpel (Cellulitic area was a little fluctuant so a small stab incision was made 8 but no real pus was obtained, there were areas of folliculitis around it a couple of which were expressed for the culture. He felt much better after local lidocaine.) Departure - Departure Disposition: 01 Home, Self Care Clinical Impression: Abscess Cellulitis Qualifiers: Site of cellulitis: neck Qualified Code(s): L03.221 - Cellulitis of neck Condition: Good Record reviewed to determine appropriate education?: Yes Instructions: Cellulitis Dc Prescriptions: Clindamycin HCl [Clindamycin 300MG CAP] 300 mg PO Q6H #40 capsule Comments: We are performing a wound culture, the results should be done in 48-72 hours. If antibiotic change is necessary we will call you. Return if worse in the meantime, especially if you develop increased pain, fevers, cannot keep down the medication. Otherwise follow-up with your physician in approximately 2-3 days.
[2019-11-21] MEDS ORDERED: traMADol 50 MG TABLET PO STA (19:24)
== END 2019-11-21 19:28 | disposition home or self-care (01) ==
LOC: ED 18:22
DX: L02.11 Cutaneous abscess of neck (principal); L03.221 Cellulitis of neck; I10 Essential (primary) hypertension; E11.9 Type 2 diabetes mellitus without complications; Z79.4 Long term (current) use of insulin
CPT/HCPCS: 10060; 87070; 87181; 87205; 99283; A9270